=== PATIENT | male | born 1950 | race Caucasian/White ===

== ENCOUNTER 2019-06-17 09:42 | Day surgery (SDC) | payer MEDICARE ==
[2019-06-13 16:03] VITALS: BMI 40.1
[~2019-06-17 09:42] MED LIST: LACTATED RINGERS 1,000 ML IV SCH; LIDOCAINE 1% 20 ML VIAL (10MG/ML) FOR IV START INTRADERMA PRN
[2019-06-17 10:00] VITALS: TEMP 97
[2019-06-17 10:05] LABS: Glucose,Whole Blood 165 mg/dL (75-99)
[2019-06-17] MEDS ORDERED: PROPOFOL 10 MG/ML 20 ML VIAL IV ONE (10:54)
[2019-06-17] MEDS ORDERED: LIDOCAINE 1% INJ 10MG/ML (20 ML MDV) ONE (10:54)
--- NOTE | 2019-06-17 11:07 | P.GSHP ---
History of Present Illness H&P Date: 06/17/19 Chief Complaint: GERD Patient here today for upper endoscopy. Patient has complaints of GERD, reflux, regurgitation, and dysphagia. Symptoms have improved since recently starting antiacids. No workup so far. Past Medical History Past Medical History: Coronary Artery Disease (CAD), Diabetes Mellitus, Hyperlipidemia, Hypertension, Sleep Apnea/CPAP/BIPAP, Thyroid Disorder Additional Past Medical History / Comment(s): pt uses a cpap machine at home Last Myocardial Infarction Date:: 12/29/13 History of Any Multi-Drug Resistant Organisms: None Reported Past Surgical History: Coronary Bypass/CABG, Heart Catheterization With Stent, Joint Replacement, Orthopedic Surgery, Tonsillectomy Additional Past Surgical History / Comment(s): thyroidectomy; cabg - YE TO THE LAD; SAPH TO THE DIAG AND RCA, lt hip replacement, arthroscopic knee Past Anesthesia/Blood Transfusion Reactions: Previous Problems w/ Anesthesia Additional Past Anesthesia/Blood Transfusion Reaction / Comment(s): too longer time to come out anesthesia Date of Last Stent Placement:: 12/29/13; 08/08 Smoking Status: Former smoker - Past Family History Father Family Medical History: Myocardial Infarction (PA) Medications and Allergies Home Medications Medication Instructions Recorded Confirmed Type Pramipexole [Mirapex] 0.25 mg PO HS 12/29/13 06/17/19 History hydrALAZINE HCL [Apresoline] 50 mg PO TID 12/29/13 06/17/19 History metFORMIN HCL [Glucophage] 1,000 mg PO BID 12/29/13 06/17/19 History Gabapentin [Neurontin] 100 mg PO BID 12/30/13 06/17/19 History Atorvastatin [Lipitor] 80 mg PO HS #30 tab 12/31/13 06/17/19 Rx Metoprolol Tartrate [Lopressor] 25 mg PO BID #60 tab 12/31/13 06/17/19 Rx Nitroglycerin Sl Tabs [Nitrostat] 0.4 mg SUBLINGUAL Q5M PRN #20 tab 12/31/13 06/17/19 Rx Aspirin EC [Ecotrin] 325 mg PO DAILY 06/13/19 06/17/19 History Calcium Carbonate/Vitamin D3 1 each PO DAILY 06/13/19 06/17/19 History [Calcium 500-Vit D3 200 Tablet] Enalapril [Vasotec] 20 mg PO BID 06/13/19 06/17/19 History Ergocalciferol [Vitamin D2] 50,000 unit PO TU 06/13/19 06/17/19 History Gabapentin [Neurontin] 300 mg PO HS 06/13/19 06/17/19 History Insulin Glargine [Lantus] 75 unit SQ HS 06/13/19 06/17/19 History Levothyroxine Sodium 100 mcg PO DAILY 06/13/19 06/17/19 History glipiZIDE [Glucotrol] 5 mg PO TID 06/13/19 06/17/19 History Allergies Allergy/AdvReac Type Severity Reaction Status Date / Time No Known Allergies Allergy Verified 06/13/19 15:46 Surgical - Exam Vital Signs Temp Pulse Resp BP Pulse Ox 97 F L 93 18 164/91 92 L 06/17/19 09:58 06/17/19 09:58 06/17/19 09:58 06/17/19 09:58 06/17/19 09:58 Physical exam: General: Well-developed, well-nourished HEENT: Normocephalic, sclerae nonicteric Abdomen: Nontender, nondistended Extremities: No edema Neuro: Alert and oriented Results - Labs Abnormal Lab Results - Last 24 Hours (Table) 06/17/19 Range/Units 10:02 POC Glucose (mg/dL) 165 H (75-99) mg/dL Assessment and Plan (1) GERD (gastroesophageal reflux disease) Narrative/Plan: Will proceed with upper endoscopy. Current Visit: Yes Status: Acute Code(s): K21.9 - GASTRO-ESOPHAGEAL REFLUX DISEASE WITHOUT ESOPHAGITIS SNOMED Code(s): 460935802
--- NOTE | 2019-06-17 11:16 | P.PCN ---
Date of Procedure: 06/17/19 Procedure(s) Performed: Preoperative Dx: GERD, dysphagia Postoperative Dx: Diffuse gastritis Procedure: EGD with Bx Anesthesia: Sedation Endoscopist: Dr. Modi Specimens: Antrum Endoscopic Procedure: The patient was on the endoscopy table in the left decubitus position. The Olympus gastroscope was inserted into the oropharynx and passed under direct visualization to the region of the third portion of the duodenum. On our passage through the esophagus the patient had a lot of saliva present in the esophagus itself. At the GE junction there seemed to be some hesitancy allowing the scope to pass the GE junction. We were able to advance the scope into the duodenum without difficulty however. From that point the scope was slowly withdrawn inspecting all surfaces carefully. There were no neoplastic inflammatory or polypoid lesions throughout the duodenum. The pylorus was widely patent. The stomach was carefully inspected. There was diffuse gastritis present. A biopsy of the antrum took place to rule out H. pylori. Retroflexion revealed a normal hiatus. The esophagus was then carefull y examined. There were no neoplastic inflammatory or polypoid lesions throughout the visualized esophagus. The esophagus appeared slightly dilated. The patient was then taken to the recovery room in stable condition per anesthesia guidelines. Recommendations: Continue antiacid therapy. Await biopsies results. Given the appearance of the esophagus would recommend esophagram and possible manometry to evaluate for dysmotility/achalasia.
[2019-06-17 11:44] VITALS: BP 142/75; PULSE 70; RESP 18
== END 2019-06-17 11:58 | disposition home or self-care (01) ==
LOC: ORWHC2ENDO 09:42
PROVIDERS: ATTEND Surgery
DX: K21.9 Gastro-esophageal reflux disease without esophagitis (principal); K29.70 Gastritis, unspecified, without bleeding; K31.9 Disease of stomach and duodenum, unspecified; K44.9 Diaphragmatic hernia without obstruction or gangrene; I10 Essential (primary) hypertension; I25.10 Atherosclerotic heart disease of native coronary artery without angina pectoris; E11.9 Type 2 diabetes mellitus without complications; E78.5 Hyperlipidemia, unspecified; I25.2 Old myocardial infarction; E89.0 Postprocedural hypothyroidism; G47.33 Obstructive sleep apnea (adult) (pediatric); Z99.89 Dependence on other enabling machines and devices; Z95.5 Presence of coronary angioplasty implant and graft; Z98.890 Other specified postprocedural states; Z90.89 Acquired absence of other organs; Z96.642 Presence of left artificial hip joint; Z87.891 Personal history of nicotine dependence; Z82.49 Family history of ischemic heart disease and other diseases of the circulatory system; Z79.82 Long term (current) use of aspirin; Z79.4 Long term (current) use of insulin; Z79.899 Other long term (current) drug therapy; Z79.890 Hormone replacement therapy; Z95.1 Presence of aortocoronary bypass graft
CPT/HCPCS: 88305; 43239; J2001; J2704

== ENCOUNTER → 2019-07-26 | Outpatient (CLI) | payer MEDICARE ==
--- NOTE | 2019-07-26 12:10 | FL ---
MODIFIED SWALLOW / DEGLUTITION STUDY DATE OF EXAM: 07/26/2019 CLINICAL HISTORY: 69-year-old male with dysphagia, frequent vomiting, followed beginning. In the lowe r chest. TECHNIQUE: Deglutition study is performed utilizing thin liquid barium, honey and nectar thick liqui d barium, barium thick applesauce, and barium coated cracker. COMPARISON: None. Total fluoroscopy time: 3 minutes 10 seconds. Total images: None. Real-time fluoroscopy support was provided to speech pathology. FINDINGS: The oral and pharyngeal phases show satisfactory initiation and propagation with all modalities teste d. Normal mastication is seen with solid modalities tested. There is a single episode of transient penetration with thin liquids. No other penetration or aspiration with any modality tested. No signi ficant pharyngeal residue was appreciated. No abnormal thickening of the cricopharyngeus. A swallow w as followed down and we note marked pooling of ingested material within a dilated esophagus and dista l tapering at the GE junction. IMPRESSION: 1. A single episode of transient penetration. Otherwise, no other penetration or aspiration seen. 2. One swallow was followed down and we note pooling of ingested material up to the upper chest with a dilated esophagus and distal tapering at the GE junction. Consider further workup for distal strict ure or developing achalasia. Please refer to speech therapist notes for further details if necessary.
== END | disposition home or self-care (01) ==
LOC: RADFLMAIN 10:52
PROVIDERS: ATTEND Surgery
DX: T18.100A Unspecified foreign body in esophagus causing compression of trachea, initial encounter (principal); K22.8 Other specified diseases of esophagus
CPT/HCPCS: 74230

== ENCOUNTER → 2019-10-28 | Outpatient (CLI) | payer MEDICARE | END | disposition home or self-care (01) | LOC: LABWHC1 09:03 | PROVIDERS: ATTEND Internal Medicine Gastroenterology | DX: Z11.59 Encounter for screening for other viral diseases (principal) ==

== ENCOUNTER → 2019-10-30 | Day surgery (SDC) | payer MEDICARE ==
[2019-10-29 10:04] VITALS: BMI 39.4
[~2019-10-30] MED LIST changes: +LIDOCAINE 1% (10MG/ML) FOR IV START INTRADERMA PRN; -LIDOCAINE 1% 20 ML VIAL (10MG/ML) FOR IV START INTRADERMA PRN
[2019-10-30 11:28] VITALS: BP 157/77; PULSE 74; RESP 20; TEMP 97.9
[2019-10-30 11:28] LABS: Glucose,Whole Blood 146 mg/dL (75-99)
--- NOTE | 2019-11-01 12:50 | PCN ---
PROCEDURE NOTE DATE OF SERVICE: 10/30/2019. DATE OF DICTATION: 11/01/2019 REQUESTING PHYSICIAN: Dr. Arenas and Dr. Modi. BRIEF HISTORY: Patient is a 69-year-old white male scheduled for esophageal manometry as a part of evaluation of dysphagia. He had an upper endoscopy done by Dr. Modi in May of 2019 that showed evidence of dilated esophagus with retained liquid and tight GE junction, suspicious for esophageal achalasia and hence he is scheduled for esophageal manometry to evaluate further. PROCEDURE PERFORMED: Esophageal manometry. PREOPERATIVE DIAGNOSIS: Dysphagia, rule out esophageal dysmotility. PROCEDURE DESCRIPTION: After informed consent was obtained, the patient was brought into the endoscopy unit. The procedure was performed by Endoscopy nurse. The esophageal manometry catheter was passed from the external ostium, was gently advanced into the stomach and into the esophagus and stomach and gastric baseline was achieved and the study was performed. Using Letcher classification, the study was interpreted. The following are the study results. 1. Lower esophageal sphincter data A mean IRP is 55 mmHg. 2. Lower esophageal body, metastatic contractions 0%, simultaneous contractions 100%. Evidence of isometric contractions noted throughout the study. 3. Bolus transit with liquids was 60% and with viscous was 0%. INTERPRETATION: The above esophageal manometry shows evidence of increased mean integral residual pressures and evidence of a peristalsis in the esophageal body, all of which is consistent with esophageal achalasia. There is evidence of leal esophageal pressurization consistent with type 2 achalasia. MMODL / IJN: [id number] /
== END ==
LOC: ORWHC2ENDO 11:09
PROVIDERS: ATTEND Internal Medicine Gastroenterology
DX: K21.9 Gastro-esophageal reflux disease without esophagitis (principal)
CPT/HCPCS: 91037

== ENCOUNTER → 2021-07-21 | Outpatient (CLI) | payer MEDICARE ==
--- NOTE | 2021-07-21 11:43 | XR ---
EXAMINATION TYPE: XR chest 2V DATE OF EXAM: 07/21/2021 COMPARISON: 09/01/2016 TECHNIQUE: PA and lateral views submitted. HISTORY: Cough FINDINGS: Coarsened interstitium with cardiomegaly and postoperative change. Diffuse hyperinflation. Subsegment al changes both lung bases. Hypertrophic and degenerative change of the spine. Epicardial lead noted. IMPRESSION: 1. COPD correlate for chronic interstitial lung disease with superimposed interstitial pneumonitis or venous congestion.
== END | disposition home or self-care (01) ==
LOC: RADXRMAIN 11:05
PROVIDERS: ATTEND Internal Medicine
DX: J44.9 Chronic obstructive pulmonary disease, unspecified (principal)
CPT/HCPCS: 71046

== ENCOUNTER → 2022-04-04 | Outpatient (CLI) | payer MEDICARE ==
[2022-04-04 18:21] LABS: African American GFR (CKD) 101.6 (60.0-200.0); Albumin 4.2 g/dL (3.8-4.9); Albumin/Globulin Ratio 1.77 (1.60-3.17); Anion Gap 12.1 mmol/L (10.00-18.00); BUN/Creat Ratio 15.7 Ratio (12.00-20.00); Blood Urea Nitrogen 13.8 mg/dL (9.0-27.0); Calcium 9.8 mg/dL (8.7-10.3); Carbon Dioxide 25.1 mmol/L (20.0-27.5); Globulin 2.4 g/dL (1.6-3.3); Non-African American GFR(CKD) 87.7 (60.0-200.0); Potassium 5.7 mmol/L (3.5-5.5); Total Bilirubin 0.7 mg/dL (0.30-1.20); Total Protein 6.6 g/dL (6.2-8.2)
== END | disposition home or self-care (01) ==
LOC: LABWHC1 12:31
PROVIDERS: ATTEND Internal Medicine Interventional Cardiology
DX: I25.5 Ischemic cardiomyopathy (principal)
CPT/HCPCS: 36415; 80053; 83880

== ENCOUNTER → 2022-04-25 | Outpatient (CLI) | payer MEDICARE ==
[2022-04-25 14:34] LABS: ALT 26 U/L (10-49); AST 26 U/L (14-35); African American GFR (CKD) 78.4 (60.0-200.0); Albumin 4.3 g/dL (3.8-4.9); Albumin/Globulin Ratio 1.59 (1.60-3.17); Alkaline Phosphatase 97 U/L (41-126); BUN/Creat Ratio 16.82 Ratio (12.00-20.00); Blood Urea Nitrogen 18.5 mg/dL (9.0-27.0); Calcium 9.7 mg/dL (8.7-10.3); Carbon Dioxide 27.2 mmol/L (20.0-27.5); Chloride 103 mmol/L (96-109); Chol/HDL Ratio 2.84 Ratio; Globulin 2.7 g/dL (1.6-3.3); Glucose 136 mg/dL (70-110); Non-African American GFR(CKD) 67.7 (60.0-200.0); Potassium 5.3 mmol/L (3.5-5.5); Sodium 142 mmol/L (135-145)
== END | disposition home or self-care (01) ==
LOC: LABWHC1 09:11
PROVIDERS: ATTEND Internal Medicine Interventional Cardiology
DX: E78.2 Mixed hyperlipidemia (principal)
CPT/HCPCS: 36415; 80053; 80061

== ENCOUNTER → 2022-09-20 | Outpatient (CLI) | payer MEDICARE ==
--- NOTE | 2022-09-20 18:00 | XR ---
EXAMINATION TYPE: XR chest 2V DATE OF EXAM: 09/20/2022 5:11 PM COMPARISON: Chest radiographs from 07/21/2021 TECHNIQUE: XR chest 2V Frontal and lateral views of the chest. CLINICAL INDICATION:Male, 72 years old with history of R07.9; FINDINGS: Lungs/Pleura: Prominent interstitial lung markings are seen scattered throughout the lungs with igor ening of the diaphragm and increased lucency of the lung apices. Increased airspace opacities project over the heart. No evidence of focal consolidation, pneumothorax or pleural effusion. Pulmonary vascularity: Unremarkable. Heart/mediastinum: Cardiomediastinal silhouette is unremarkable. Musculoskeletal: No acute osseous pathology. IMPRESSION: Increased airspace opacities over the left lung compared to prior. Correlate for pneumonia.
== END | disposition home or self-care (01) ==
LOC: RADXRMAIN 17:00
PROVIDERS: ATTEND Internal Medicine
DX: R05.9 Cough, unspecified (principal); R68.83 Chills (without fever); R91.8 Other nonspecific abnormal finding of lung field; R07.9 Chest pain, unspecified
CPT/HCPCS: 71046

== ENCOUNTER → 2022-09-21 | Outpatient (CLI) | payer MEDICARE ==
[2022-09-22 03:05] LABS: African American GFR (CKD) 104.9 (60.0-200.0); Albumin/Globulin Ratio 1.6 (1.60-3.17); Blood Urea Nitrogen 16.8 mg/dL (9.0-27.0); Calcium 9.6 mg/dL (8.7-10.3); Globulin 2.5 g/dL (1.6-3.3); Non-African American GFR(CKD) 90.5 (60.0-200.0); Potassium 4.7 mmol/L (3.5-5.5); Total Bilirubin 0.4 mg/dL (0.30-1.20); Total Protein 6.5 g/dL (6.2-8.2)
== END | disposition home or self-care (01) ==
LOC: LABWHC1 13:49
PROVIDERS: ATTEND Internal Medicine Interventional Cardiology
DX: I25.5 Ischemic cardiomyopathy (principal)
CPT/HCPCS: 36415; 80053; 83880

== ENCOUNTER → 2022-10-14 | Outpatient (CLI) | payer MEDICARE ==
--- NOTE | 2022-10-14 10:46 | XR ---
EXAMINATION TYPE: XR chest 2V DATE OF EXAM: 10/14/2022 COMPARISON: 09/20/2022 TECHNIQUE: PA and lateral views submitted. HISTORY: Cough FINDINGS: The lungs are clear and there is no pneumothorax or pleural effusion. Subsegmental changes along the left lung base demonstrate interval improvement.. Osseous structures demonstrate hypertrophic and de generative changes of the spine. Heart is enlarged and postoperative changes. Correlate for diffuse n eoplastic skeletal hyperostosis. Epicardial leads noted. IMPRESSION: 1. Interval improvement in left lower lobe area of consolidation with some residual density persistin g felt to resolution recommended to exclude other etiologies
== END | disposition home or self-care (01) ==
LOC: RADXRMAIN 09:06
PROVIDERS: ATTEND Internal Medicine
DX: J98.4 Other disorders of lung (principal); J18.9 Pneumonia, unspecified organism
CPT/HCPCS: 71046

== ENCOUNTER → 2022-10-26 | Outpatient (CLI) | payer MEDICARE ==
--- NOTE | 2022-10-27 14:54 | CT ---
EXAMINATION TYPE: CT chest w con DATE OF EXAM: 10/26/2022 COMPARISON: None HISTORY: pneumonia CT DLP: 611.8 mGycm, Automated exposure control for dose reduction was used. CONTRAST: Performed injected with 100 mL of Isovue 300. TECHNIQUE: Axial images were obtained at 5 mm thick sections. Reconstructed images are reviewed on [employer] computer in the coronal plane. FINDINGS: Right lobe thyroid is enlarged be further evaluated with ultrasound. Appears to be a large hypodensity within the transverse dimension of approximately 1.5 cm. No suspicious lung nodules or focal infiltrates are present. Esophagus is dilated and has internal debris. Some diffuse wall thickening through the mid to distal esophagus. Additional workup of the esophagus is recommended. Esophagitis and neoplasm considered. No enlarged mediastinal or hilar adenopathy is evident. The ascending aorta diameter at the level o f the main pulmonary artery is 3.8 cm. The main pulmonary artery diameter at the bifurcation is 2.[address] sections are obtained through the upper abdomen. Abdomen is essentially unremarkable. IMPRESSIONS: 1. Diffusely thickened esophageal wall from the mid esophagus to the gastroesophageal junction. Neopl asm is not excluded. Additional workup is recommended. 2. Enlarged heterogenous right thyroid. Additional evaluation with ultrasound is recommended.
== END | disposition home or self-care (01) ==
LOC: RADCTMAIN 15:28
PROVIDERS: ATTEND Internal Medicine
DX: J18.9 Pneumonia, unspecified organism (principal); E04.9 Nontoxic goiter, unspecified; R91.8 Other nonspecific abnormal finding of lung field
CPT/HCPCS: 82565; 84520; 71260; 36415; Q9967

== ENCOUNTER → 2022-11-18 | Outpatient (CLI) | payer MEDICARE ==
--- NOTE | 2022-11-18 10:57 | US ---
EXAMINATION TYPE: US thyroid st tissue head/neck DATE OF EXAM: 11/18/2022 COMPARISON: CT dated10/26/2022 CLINICAL INDICATION: Male, 72 years old with history of R22.1; Localized swelling, mass or lump. GLAND SIZE: Right Lobe: 6.3 x 3.3 x 3.2 cm Overall Parenchyma: heterogenous Left Lobe: Surgically absent cm NODULES RIGHT: # of nodules measured on right: 0 Patient believes that he had thyroid removed back in the 80's. Gland is diffusely enlarged and hete rogeneous. Bilateral neck scanned, no evidence of lymphadenopathy. IMPRESSION: Diffuse glandular heterogeneity and enlargement. Correlate with thyroid function testing.
== END | disposition home or self-care (01) ==
LOC: RADUSWWP 10:17
PROVIDERS: ATTEND Internal Medicine
DX: R22.1 Localized swelling, mass and lump, neck (principal)
CPT/HCPCS: 76536

== ENCOUNTER → 2023-01-23 | Outpatient (CLI) | payer MEDICARE ==
[2023-01-23 10:57] LABS: ALT 26 U/L (4-49); AST 24 U/L (17-59); African American GFR (CKD) >90 (>60 ml/min/1.73 sqM); Albumin 3.8 g/dL (3.5-5.0); Albumin/Globulin Ratio 1.3; Alkaline Phosphatase 86 U/L (38-126); Anion Gap 9 mmol/L; Blood Urea Nitrogen 21 mg/dL (9-20); Calcium 9.3 mg/dL (8.4-10.2); Carbon Dioxide 28 mmol/L (22-30); Chloride 104 mmol/L (98-107); Globulin 2.9 g/dL; Glucose 160 mg/dL (74-99); Non-African American GFR(CKD) 89 (>60 ml/min/1.73 sqM); Sodium 141 mmol/L (137-145); Total Bilirubin 0.5 mg/dL (0.2-1.3); Total Protein 6.7 g/dL (6.3-8.2)
[2023-01-23 11:04] LABS: NT-Pro-B-Type Natriuretic Pept 1850 pg/mL
[2023-01-23 15:48] LABS: Chol/HDL Ratio 3.29 Ratio; LDL Cholesterol,Calculated 58.3 mg/dL (0.0-131.0)
== END | disposition home or self-care (01) ==
LOC: LABWHC1 08:47
PROVIDERS: ATTEND Nurse Practitioner Adult Health
DX: I25.5 Ischemic cardiomyopathy (principal); E78.2 Mixed hyperlipidemia
CPT/HCPCS: 36415; 80053; 80061; 83880

== ENCOUNTER → 2023-02-02 | Outpatient (CLI) | payer MEDICARE ==
--- NOTE | 2023-02-02 11:21 | USB ---
Reason for Exam: Clinical finding. Patient History: Maternal grandmother had breast cancer, age 75. Technique: Method: Targeted. Findings: The retroareolar of both breasts was scanned. Subareolar and periareolar left breast ultrasound corresponding to the site of patient's pain. Comparison images to the contralateral side. There is flame-shaped area in the subareolar region typical of gynecomastia. Similar but slightly lesser degree findings on the contralateral side. No suspicious solid or cystic mass. Overall Assessment: Benign, BI-RAD 2 Management: Clinical Management of both breasts. For benign bilateral gynecomastia. Correlate for possible causes. If it continues to be symptomatic and treatment is desired, surgical evaluation can be considered. Results were given to the patient verbally at the time of exam. Electronically signed and approved by: Nadia Stanford M.D. Radiologist
--- NOTE | 2023-02-02 11:22 | MM ---
Reason for Exam: Clinical finding. Patient History: Maternal grandmother had breast cancer, age 75. Tissue Density: The breast tissue is heterogeneously dense. This may lower the sensitivity of mammography. Findings: Analyzed By CAD. Dense tissue is present in the subareolar region on both sides, left greater than right. Density in these locations are flame shaped typical of gynecomastia. No persisting abnormality on spot compression views. Overall Assessment: Incomplete: need additional imaging evaluation, BI-RAD 0 Management: Diagnostic Breast Ultrasound of the left breast. Electronically signed and approved by: Nadia Stanford M.D. Radiologist
== END | disposition home or self-care (01) ==
LOC: RADMAMWWP 10:08
PROVIDERS: ATTEND Internal Medicine
DX: N64.4 Mastodynia (principal); Z80.3 Family history of malignant neoplasm of breast
CPT/HCPCS: 77066; 76642; G0279; 77062

== ENCOUNTER 2023-03-29 08:39 | Day surgery (SDC) | payer MEDICARE ==
[2023-03-27 14:01] VITALS: BMI 33.7
[2023-03-29 09:42] LABS: Glucose,Whole Blood 167 mg/dL (70-110)
[2023-03-29] MEDS ORDERED: LIDOCAINE 1% INJ 10MG/ML (20 ML MDV) ONE (10:05)
[2023-03-29] MEDS ORDERED: PROPOFOL 10 MG/ML 20 ML VIAL IV ONE (10:05)
[2023-03-29] MEDS ORDERED: BENZOCAINE SPRAY 1 CAN TOPICAL ONE (10:10)
[2023-03-29] MEDS ORDERED: ePHEDrine 50 MG/ML 1 ML VIAL IVP ONE (10:35)
--- NOTE | 2023-03-29 10:41 | P.PCN ---
Date of Procedure: 03/29/23 Description of Procedure: Indication: Atrial fibrillation Procedure Description: After explaining the procedure to the patient, it's risk and complications, blood pressure, heart rate and O2 saturation were monitored. The throat was sprayed with Cetacaine. Patient received sedation per anesthesia department. The probe was introduced into the esophagus without difficulty. Images were obtained. Following that, the probe was removed. There was no immediate complication. Findings: Left atrium size is mildly dilated, left atrial appendage is normal. The left ventricle size is normal there is moderate impairment in systolic function with inferoapical and inferolateral hypokinesis. Ejection fraction 35-40%. The aortic valve revealed fibrocalcific changes of the aortic cusps with preserved opening. Mitral annulus calcification was noted. Tricuspid valve is normal. Descending thoracic aorta revealed mild atherosclerotic changes. No pericardial effusion was noted. Contrast bubble study revealed no shunting across the intra-atrial septum. Doppler: Pulse wave and color Doppler were obtained, and revealed moderate mitral with mild to moderate tricuspid regurgitation there was no shunting by color Doppler study Conclusion: 1. Dilated left atrium with normal appearance of the left atrial appendage 2. Moderately impaired left ventricular systolic function with segmental wall motion abnormality 3. Moderate mitral with mild to moderate tricuspid regurgitation 4. Mild atherosclerotic changes of the descending thoracic aorta 5. No shunting across the intra-atrial septum Cardioversion: After explained the procedure to the patient as well as his risks and the complications and obtaining FRANCO and sedated state per anesthesia department synchronize biphasic cardioversion using 150 J was performed with religion of sinus mechanism. Patient had episodes of pauses and bradycardia that resolved spontaneously. There was no immediate complications.
[2023-03-29] MEDS ORDERED: KETOCONAZOLE 2% SHAMPOO 1 APPLIC/ML TOPICAL SCH (10:45)
[2023-03-29] MEDS ORDERED: SODIUM CHLORIDE 0.9% 1,000 ML IV SCH (10:45)
[2023-03-29 11:08] VITALS: TEMP 98
[2023-03-29] MEDS ORDERED: IV FLUID CONTINUATION 1,000 ML IV ONE (12:48)
[2023-03-29 14:55] VITALS: RESP 16
[2023-03-29 15:23] VITALS: BP 110/63; PULSE 65
[2023-03-29] MEDS ORDERED: glipiZIDE 5 MG TAB PO SCH (16:00)
[2023-03-29] MEDS ORDERED: GABAPENTIN 100 MG CAP PO SCH (17:30)
[2023-03-29] MEDS ORDERED: NON FORMULARY DRUG (Metformin Hcl [Glucophage] 1,000 MG Tablet) PO SCH (17:30)
[2023-03-29] MEDS ORDERED: GABAPENTIN 300 MG CAP PO SCH (21:00)
[2023-03-29] MEDS ORDERED: APIXABAN 5 MG TAB PO SCH (21:00)
[2023-03-29] MEDS ORDERED: PRAMIPEXOLE 0.25 MG TAB PO SCH (21:00)
[2023-03-29] MEDS ORDERED: ATORVASTATIN 80 MG TAB PO SCH (21:00)
[2023-03-30] MEDS ORDERED: FUROSEMIDE 20 MG TAB PO SCH (09:00)
[2023-03-30] MEDS ORDERED: SACUBITRIL/VALSARTAN 49 MG-51 MG TABLET PO SCH (09:00)
[2023-03-30] MEDS ORDERED: LEVOTHYROXINE 100 MCG TAB PO SCH (09:00)
[2023-03-30] MEDS ORDERED: NON FORMULARY DRUG (Empagliflozin [Jardiance] 10 MG Tablet) PO SCH (09:00)
[2023-03-30] MEDS ORDERED: EPLERENONE 25 MG PO SCH (09:00)
== END 2023-03-29 15:03 | disposition home or self-care (01) ==
LOC: OR 08:39
PROVIDERS: ATTEND Internal Medicine Interventional Cardiology
DX: I07.1 Rheumatic tricuspid insufficiency (principal); I48.91 Unspecified atrial fibrillation; I70.0 Atherosclerosis of aorta; I25.10 Atherosclerotic heart disease of native coronary artery without angina pectoris; I25.2 Old myocardial infarction; I10 Essential (primary) hypertension; I48.3 Typical atrial flutter; E78.00 Pure hypercholesterolemia, unspecified; I25.5 Ischemic cardiomyopathy; E66.9 Obesity, unspecified; Z95.5 Presence of coronary angioplasty implant and graft; Z79.899 Other long term (current) drug therapy; Z79.84 Long term (current) use of oral hypoglycemic drugs
CPT/HCPCS: 93312; 93320; 93325; 92960; J2001; J2704

== ENCOUNTER → 2023-09-25 | Outpatient (CLI) | payer MEDICARE ==
[2023-09-25 14:28] LABS: HCT 48.2 % (39.6-50.0); HGB 14.9 g/dL (13.0-17.0); MCH 29.1 pg (27.0-32.0); MCHC 30.9 g/dL (32.0-37.0); MCV 94.1 FL (80.0-97.0); Mean Platelet Volume 10.3 FL (9.5-12.2); NRBC Per 100 WBC 0 X 10*3/uL (0.00-0.01); Platelet Count 284 X 10*3/uL (140-440); RBC 5.12 X 10*6/uL (4.40-5.60); RDW 14.9 % (11.5-14.5); WBC 8.19 X 10*3/uL (4.50-10.00)
[2023-09-25 15:00] LABS: Blood Urea Nitrogen 20.9 mg/dL (9.0-27.0); Carbon Dioxide 25.1 mmol/L (21.6-31.8); Chloride 101 mmol/L (96-109); Potassium 5.1 mmol/L (3.5-5.5); Sodium 140 mmol/L (135-145)
== END | disposition home or self-care (01) ==
LOC: LABWHC1 10:50
PROVIDERS: ATTEND Internal Medicine Clinical Cardiac Electrophysiology
DX: Z01.812 Encounter for preprocedural laboratory examination (principal); I48.3 Typical atrial flutter; I10 Essential (primary) hypertension
CPT/HCPCS: 36415; 80051; 82565; 84520; 85027

== ENCOUNTER 2023-10-02 09:31 | Inpatient (IN) | payer MEDICARE ==
[2023-10-02] MEDS: SODIUM CHLORIDE 0.9% 1,000 ML IV SCH (09:57)
[2023-10-02 09:59] LABS: Glucose,Whole Blood 165 mg/dL (70-110)
[2023-10-02 10:36] LABS: ALT 35 U/L (4-49); AST 27 U/L (17-59); African American GFR (CKD) >90 (>60 ml/min/1.73 sqM); Albumin 4.3 g/dL (3.5-5.0); Alkaline Phosphatase 89 U/L (38-126); Anion Gap 10 mmol/L; Blood Urea Nitrogen 19 mg/dL (9-20); Calcium 9.6 mg/dL (8.4-10.2); Carbon Dioxide 26 mmol/L (22-30); Chloride 102 mmol/L (98-107); Glucose 180 mg/dL (74-99); Non-African American GFR(CKD) 87 (>60 ml/min/1.73 sqM); Potassium 4.4 mmol/L (3.5-5.1); Sodium 138 mmol/L (137-145); Total Bilirubin 0.9 mg/dL (0.2-1.3); Total Protein 7.6 g/dL (6.3-8.2)
[2023-10-02] MEDS ORDERED: PHENYLEPHRINE 10 MG/ML VIAL ONE (12:10)
[2023-10-02] MEDS ORDERED: fentaNYL (PF) 50 MCG/ML 2 ML AMP ONE (12:10)
[2023-10-02] MEDS ORDERED: PROPOFOL 10 MG/ML 20 ML VIAL IV ONE (12:10)
[2023-10-02] MEDS ORDERED: HEPARIN SODIUM,PORCINE 10,000 UNIT/ML 1 ML VIAL ONE (12:10)
[2023-10-02] MEDS ORDERED: SUCCINYLCHOLINE CHLORIDE 200 MG/10 ML VIAL IV ONE (12:10)
[2023-10-02] MEDS ORDERED: MIDAZOLAM 2 MG/2 ML VIAL ONE (12:10)
[2023-10-02] MEDS ORDERED: ROCURONIUM 10 MG/ML (5 ML VIAL) IV ONE (12:10)
--- NOTE | 2023-10-02 12:32 | P.HPCAR ---
History of Present Illness This is Dr. Diaz dictating an H/P on this patient The patient was interviewed and examined IMPRESSION / ASSESSMENT: Persistent atrial flutter, symptomatic Associated cardiomyopathy with moderate mitral regurgitation Failed medical treatment and electrical cardioversion Coronary artery disease status post coronary artery bypass grafting in 2005 Coronary stenting in the past Normal TSH On anticoagulation with Eliquis Compliant with nystatin powder application on the groins PLAN: Diagnostic EP study and radiofrequency ablation for typical atrial flutter Reassessment of LV function thereafter Continue anticoagulation HPI Patient remains in atrial flutter. Continues to complain of shortness of breath on exertion tiredness and fatigue Denies any fever chills syncope or chest pain recently in the last 1 to 2 weeks Has been compliant with Eliquis as well as nystatin powder applications on his groins ROS: No fever chills or rigors, no cough, phlegm or expectoration, no nausea, vomiting or diarrhea, no hematuria, dysuria, no musculoskeletal complaints, no strokes or seizures, no skin lesions. EXAMINATION: Pulse rate 80 blood pressure normal 130/76 mmHg Breath sounds equal bilaterally no rhonchi no crackles Heart sounds are irregular No JVD Able to lie flat and comfortably so REVIEW OF LABS, ECG & MEDICAL DATA Sodium 138, potassium 4.4 BUN 19 and creatinine 0.86 TSH normal 1.5 Physical Exam Vitals: Vital Signs Temp Pulse Resp BP BP Pulse Ox 10/02/23 09:52 98.2 F 79 18 130/76 124/67 94 L Intake and Output 10/01/23 10/02/23 10/02/23 22:59 06:59 14:59 Intake Total 100 Balance 100 Intake: IV 100 Other: Weight 112.7 kg Past Medical History Past Medical History: Atrial Flutter, Coronary Artery Disease (CAD), Chest Pain / Angina, Diabetes Mellitus, Hyperlipidemia, Hypertension, Sleep Apnea/CPAP/BIPA P, Thyroid Disorder Additional Past Medical History / Comment(s): c-pap machine, RLS, dry skin, hx of unhealing wound with amputation of left great toe 03/03/23 -states sutures inplace and wearing special shoe-no wt bearing-using rolling walker., hx of esophageal achalasia with dilation and also 2 surgeries to attempt to repair esophagus., See Cardiology H & P. pt has wound to lft foot goes to wound center and does daily dressing changes at home in between., at this time is not using a special shoe Last Myocardial Infarction Date:: 12/29/13 History of Any Multi-Drug Resistant Organisms: None Reported Past Surgical History: Back Surgery, Coronary Bypass/CABG, Heart Catheterization With Stent, Joint Replacement, Orthopedic Surgery, Tonsillectomy Additional Past Surgical History / Comment(s): thyroidectomy; CABG 2005., total right and left hip., arthroscopic knee surgery, egd with dilation, lower back surgery with rods and hardware., cardiac cath with 1 stent in 2012 and 1 stent 2013., pt states achalasia with egd and dilation and davinci laparotomy x2 in attempt to repair esophagus., left great toe amputation (03/03/23) Past Anesthesia/Blood Transfusion Reactions: Previous Problems w/ Anesthesia, Motion Sickness, Postoperative Nausea & Vomiting (PONV) Additional Past Anesthesia/Blood Transfusion Reaction / Comment(s): took a long time to come out of anesthesia. Date of Last Stent Placement:: 2013 Smoking Status: Former smoker - Past Family History Father Family Medical History: Myocardial Infarction (ID) Physical Examination Vital Signs Temp Pulse Resp BP BP Pulse Ox 10/02/23 09:52 98.2 F 79 18 130/76 124/67 94 L Intake and Output 10/01/23 10/02/23 10/02/23 22:59 06:59 14:59 Intake Total 100 Balance 100 Intake: IV 100 Other: Weight 112.7 kg Results 10/02/23 09:50 Cardiac Enzymes 10/02/23 Range/Units 09:50 AST 27 (17-59) U/L Comprehensive Metabolic Panel 10/02/23 Range/Units 09:50 Sodium 138 (137-145) mmol/L Potassium 4.4 (3.5-5.1) mmol/L Chloride 102 (98-107) mmol/L Carbon Dioxide 26 (22-30) mmol/L BUN 19 (9-20) mg/dL Creatinine 0.86 (0.66-1.25) mg/dL Glucose 180 H (74-99) mg/dL Calcium 9.6 (8.4-10.2) mg/dL AST 27 (17-59) U/L ALT 35 (4-49) U/L Alkaline Phosphatase 89 (38-126) U/L Total Protein 7.6 (6.3-8.2) g/dL Albumin 4.3 (3.5-5.0) g/dL Current Medications Generic Name Dose Route Start Last Admin Trade Name Freq PRN Reason Stop Dose Admin Sodium Chloride 1,000 mls @ 20 mls/hr 10/02/23 06:20 10/02/23 09:57 Saline 0.9% IV 11/01/23 06:21 100 mls .Q24H ERUM Administration Intake and Output 10/01/23 10/02/23 10/02/23 22:59 06:59 14:59 Intake Total 100 Balance 100 Intake: IV 100 Other: Weight 112.7 kg Patient Weight 10/03/23 06:59 Weight 112.7 kg 10/02/23 09:50
[2023-10-02] MEDS: HEPARIN SODIUM (1,000 UNIT/ML) 1,000 UNIT in SODIUM CHLORIDE 0.9% 1,000 ML IRRIGATION ONE (12:34)
[2023-10-02] MEDS: LIDOCAINE 1% INJ 10MG/ML (20 ML MDV) SQ ONE (12:51)
--- NOTE | 2023-10-02 15:22 | P.EPPROC ---
- EP Procedure Note Electrophysiology Procedure Note: Diagnosis Typical atrial flutter Cardiomyopathy with congestive heart failure Final diagnosis Successful ablation for typical atrial flutter Prolonged AV node Wenckebach block 510 ms at baseline Prolonged sinus node recovery times Very long cavotricuspid isthmus of 64 mm Procedure details Patient was brought to the EP lab in a fasting state. Written informed consent was obtained prior to the procedure. The right Groins were prepped and draped as a protocol and venous sheaths were placed A long sheath was placed An intracardiac echo catheter was placed. Smoke was noted in the right atrium. IV heparin 5000 units was given, bolus Diagnostic, mapping and ablation catheters were placed A Penta ray catheter was later used to map the isthmus following ablation The patient was in typical atrial flutter with a cycle length of 266 ms 3D anatomic mapping was first performed. This was a very long isthmus of 64 mm. No pericardial effusion at baseline Electroanatomic mapping was performed RF ablation delivered This is resulted in termination of typical atrial flutter Following that a complete line of block was made This took an extra long. Time on account of the length of the isthmus Following that a Penta ray catheter was used to map the voltage along the line The area of fibrillation showed a very low voltage scar of less than 0.03 mV and complete Isthmus conduction time greater than 185 ms With differential pacing bidirectional block was proven Following that [place] interval 144 ms QRS 99 ms QT interval 376 ms AV node Wenckebach block prolonged at 510 ms Sinus node recovery times prolonged at 1683 ms High-dose Isopril infused No atrial fibrillation induced All catheters removed and hemostasis achieved with a combination of Vascade and Perclose Patient tolerated procedure well without any acute complications. No pericardial effusion at the end of the procedure
[2023-10-02 15:26] LABS: Glucose,Whole Blood 163 mg/dL (70-110)
[2023-10-02] MEDS: GABAPENTIN 300 MG CAP PO SCH (16:40)
[2023-10-02] MEDS: carvediloL 3.125 MG TAB PO SCH (16:41)
[2023-10-02] MEDS: glipiZIDE 5 MG TAB PO SCH (16:41)
[2023-10-02] MEDS: metFORMIN 500 MG TAB PO SCH (16:41)
[2023-10-02 17:01] LABS: Glucose,Whole Blood 206 mg/dL (70-110)
[2023-10-02] MEDS: ACETAMINOPHEN IV (For NPO) 1,000 MG in EMPTY BAG 1 BAG IVPB ONE (17:10)
[2023-10-02 20:26] LABS: Glucose,Whole Blood 179 mg/dL (70-110)
[2023-10-02] MEDS: DEXTROSE/WATER 1 250ML.BAG with DOPamine DRIP 800 MG IV SCH (20:45)
[2023-10-02] MEDS: ONDANSETRON 4 MG/2 ML VIAL IVP PRN (21:15)
[2023-10-02] MEDS: ACETAMINOPHEN TAB 325 MG TAB PO PRN (21:29)
[2023-10-02] MEDS: hydrALAZINE HCL 50 MG TAB PO SCH (21:30)
[2023-10-02] MEDS: APIXABAN 5 MG TAB PO SCH (21:30)
[2023-10-02] MEDS: GABAPENTIN 100 MG CAP PO SCH (21:30)
[2023-10-02] MEDS: ATORVASTATIN 80 MG TAB PO SCH (21:30)
[2023-10-03 06:22] LABS: HCT 44.9 % (39.0-53.0); HGB 14.2 gm/dL (13.0-17.5); MCH 30.1 pg (25.0-35.0); MCHC 31.6 g/dL (31.0-37.0); MCV 95.2 fL (80.0-100.0); Mean Platelet Volume 8.2; Platelet Count 268 k/uL (150-450); RBC 4.71 m/uL (4.30-5.90); WBC 10.3 k/uL (3.8-10.6)
[2023-10-03] MEDS: LEVOTHYROXINE 100 MCG TAB PO SCH (06:35)
[2023-10-03 06:36] LABS: Glucose,Whole Blood 296 mg/dL (70-110)
[2023-10-03 06:38] LABS: ALT 28 U/L (4-49); AST 24 U/L (17-59); African American GFR (CKD) >90 (>60 ml/min/1.73 sqM); Albumin 3.5 g/dL (3.5-5.0); Alkaline Phosphatase 61 U/L (38-126); Anion Gap 5 mmol/L; Blood Urea Nitrogen 19 mg/dL (9-20); Calcium 8.6 mg/dL (8.4-10.2); Carbon Dioxide 25 mmol/L (22-30); Chloride 107 mmol/L (98-107); Glucose 204 mg/dL (74-99); Magnesium 1.9 mg/dL (1.6-2.3); Non-African American GFR(CKD) >90 (>60 ml/min/1.73 sqM); Potassium 4.6 mmol/L (3.5-5.1); Sodium 137 mmol/L (137-145); Total Bilirubin 0.6 mg/dL (0.2-1.3); Total Protein 6.3 g/dL (6.3-8.2)
[2023-10-03] MEDS: FUROSEMIDE 20 MG TAB PO SCH (07:47)
[2023-10-03] MEDS: SACUBITRIL/VALSARTAN 49 MG-51 MG TABLET PO SCH (08:07)
--- NOTE | 2023-10-03 08:09 | XR ---
EXAMINATION TYPE: XR chest 1V portable DATE OF EXAM: 10/03/2023 COMPARISON: 10/14/2022 HISTORY: 10/14/2022 TECHNIQUE: Single frontal view of the chest is obtained. FINDINGS: Heart is enlarged and there is ectasia of the aorta. Post median sternotomy changes with b ilateral consolidation. Arthropathy of the shoulders. No overt failure or pneumothorax. IMPRESSION: 1. Basilar atelectasis versus early pneumonia correlate clinically. 2. COPD with cardiomegaly and thoracic aortic ectasia. Widening mediastinum likely reflects positioni ng and ectatic vasculature rather than adenopathy or mass. Dedicated PA and lateral view of the chest could be obtained on a short-term basis.
--- NOTE | 2023-10-03 08:09 | P.PN ---
Progress Note - Text Patient underwent successful atrial flutter ablation yesterday During the ablation while the patient was in sinus rhythm sinus pauses were noted but the patient was under general anesthesia Metoprolol was discontinued and Coreg was started However last evening on 6 N. telemetry the patient started having frequent pauses, sinus pauses and sinus arrest noted symptomatic He was transferred to [facility] but there were no beds so he went to the ICU instead IV dopamine at 2 mics was initiated Despite that he continued to have frequent pauses intermittently through the night He also has significant sleep apnea with hypoxia and desaturation at night On examination his blood pressure is low normal Heart sounds are regular He looks comfortable no chest pain Impression Atrial flutter status post successful ablation Underlying sick sinus syndrome with sudden sinus pauses and sinus arrest intermittently Documented abnormal sinus node recovery times at EP study Documented abnormal AV node function and EP study Yesterday he was symptomatic and dopamine was begun He desaturated at night while sleeping and has sleep apnea. He was placed on BiPAP mask at night Normal labs today Chest x-ray appears normal Normal white count 10.3 thousand, normal hemoglobin of 14.2 thousand Normal electrolytes Normal BUN and creatinine Normal AST and ALT Plan Continue IV dopamine because he continues to have these episodes of sinus arrest on dopamine Permanent pacing prior to discharge He may get up and sit in the chair today Stop Lasix stop hydralazine and hold Entresto Continue Eliquis Permanent pacemaker with conduction system pacing prior to discharge
[2023-10-03] MEDS: DAPAGLIFLOZIN PROPANEDIOL 5 MG TABLET PO SCH (08:15)
[2023-10-03] MEDS: ASPIRIN 81 MG PO SCH (08:16)
[2023-10-03] MEDS: SPIRONOLACTONE 25 MG TAB PO SCH (08:16)
[2023-10-03] MEDS ORDERED: VANCOMYCIN IV PER PHARMACY 1 EACH MISC MISCELLANE PRN (08:35)
[2023-10-03] MEDS: VANCOMYCIN 1,750 MG in SODIUM CHLORIDE 0.9% 500 ML 500 ML IVPB SCH (10:05)
[2023-10-03] MEDS: SACUBITRIL/VALSARTAN 24 MG-26 MG TABLET PO SCH (10:06)
[2023-10-03 11:48] LABS: Glucose,Whole Blood 213 mg/dL (70-110)
[2023-10-03] MEDS: FUROSEMIDE 40 MG TAB PO SCH (12:15)
--- NOTE | 2023-10-03 14:32 | P.CNPUL ---
History of Present Illness Consult date: 10/03/23 Requesting physician: Ken Diaz Reason for consult: other (osas) Chief complaint: Persistent atrial flutter History of present illness: This is a 73-year-old white male with known history of atrial flutter, associated with cardiomyopathy, mitral regurgitation, failed medical treatment and electrical cardioversion, patient underwent diagnostic EP study and radiofrequency ablation for typical atrial flutter, postoperatively, patient was admitted to the ICU, and I was asked to see him in consultation for obstructive sleep apnea syndrome. Patient was diagnosed with sleep apnea many years ago, has been on BiPAP with IPAP of 10 and EPAP of 6 for many years, patient even brought his own BiPAP machine, and he used it last night. Patient denies any cough no wheezing no shortness of breath no chest pain. Dr. Diaz is planning to give the patient vancomycin for a few days because of cellulitis involving his lower extremities, and he plans to have a pacemaker implantation in the next few days. 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 Vancomycin will be started by cardiology, and the dose will be addressed by pharmacy. Review of Systems REVIEW OF SYSTEMS: CONSTITUTIONAL: Negative. EYES: Negative. ENT: Negative. CARDIAC: Negative. PULMONARY: As above. GI: Negative. GENITOURINARY: Negative. MUSCULOSKELETAL: Negative. SKIN: Negative. NEUROPSYCH: Negative. ENDOCRINE: Negative. HEMATOLOGIC: Negative. 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 pt has wound to lft foot goes to wound center and does daily dressing changes at home in between., at this time is not using a special shoe Last Myocardial Infarction Date:: 12/29/13 History of Any Multi-Drug Resistant Organisms: None Reported Past Surgical History: Back Surgery, Coronary Bypass/CABG, Heart Catheterization With Stent, Joint Replacement, Orthopedic Surgery, Tonsillectomy Additional Past Surgical History / Comment(s): thyroidectomy; CABG 2005., total right and left hip., arthroscopic knee surgery, egd with dilation, lower back surgery with rods and hardware., cardiac cath with 1 stent in 2012 and 1 stent 2013., pt states achalasia with egd and dilation and davinci laparotomy x2 in attempt to repair esophagus., left great toe amputation (03/03/23) Past Anesthesia/Blood Transfusion Reactions: Previous Problems w/ Anesthesia, Motion Sickness, Postoperative Nausea & Vomiting (PONV) Additional Past Anesthesia/Blood Transfusion Reaction / Comment(s): took a long time to come out of anesthesia. Date of Last Stent Placement:: 2013 Past Psychological History: No Psychological Hx Reported Smoking Status: Former smoker Past Alcohol Use History: Occasional Additional Past Alcohol Use History / Comment(s): quit smoking 20 plus years ago., smoked approx 40 years ., hx of 1 pack/3d Past Drug Use History: None Reported - Past Family History Father Family Medical History: Myocardial Infarction ([place]) Medications and Allergies Home Medications Medication Instructions Recorded Confirmed Type hydrALAZINE HCL [Apresoline] 50 mg PO BID 12/29/13 10/02/23 History metFORMIN HCL [Glucophage] 1,000 mg PO BID-W/MEALS 12/29/13 10/02/23 History Gabapentin [Neurontin] 100 mg PO HS 12/30/13 10/02/23 History Atorvastatin [Lipitor] 80 mg PO HS #30 tab 12/31/13 10/02/23 Rx Nitroglycerin Sl Tabs [Nitrostat] 0.4 mg SUBLINGUAL Q5M PRN #20 tab 12/31/13 10/02/23 Rx Gabapentin [Neurontin] 300 mg PO TID 06/13/19 10/02/23 History Levothyroxine Sodium 100 mcg PO DAILY 06/13/19 10/02/23 History glipiZIDE [Glucotrol] 5 mg PO TID 06/13/19 10/02/23 History Ammonium Lactate Cream [Lac-Hydrin 1 applic TOPICAL DIRECTED 03/27/23 10/02/23 History 12% Cream] Apixaban [Eliquis] 5 mg PO BID 03/27/23 10/02/23 History Calcium Carbonate [Calcium] 600 mg PO DAILY 03/27/23 10/02/23 History Cholecalciferol [Vitamin D3 (25 25 mcg PO DAILY 03/27/23 10/02/23 History Mcg = 1000 Iu)] Clobetasol Propionate [Temovate 1 applic TOPICAL DIRECTED 03/27/23 10/02/23 History 0.05% Cream] Empagliflozin [Jardiance] 10 mg PO DAILY 03/27/23 10/02/23 History Eplerenone 25 mg PO DAILY 03/27/23 10/02/23 History Furosemide [Lasix] 20 mg PO DAILY 03/27/23 10/02/23 History Ketoconazole 2% Shampoo [Nizoral] 1 applic TOPICAL DIRECTED 03/27/23 10/02/23 History Mometasone 0.1% Ointment 1 applicate TOPICAL DIRECTED 03/27/23 10/02/23 History Pramipexole [Mirapex] 0.25 mg PO HS 03/27/23 10/02/23 History Sacubitril/Valsartan [Entresto 49 1 each PO DAILY 03/27/23 10/02/23 History mg-51 mg Tablet] Aspirin EC [Ecotrin] 81 mg PO DAILY #0 03/29/23 10/02/23 Rx Ozempic(Unk) 1 dose INJ TU 09/29/23 10/02/23 History carvediloL [Coreg] 3.125 mg PO BID #180 tablet 10/02/23 Rx Allergies Allergy/AdvReac Type Severity Reaction Status Date / Time No Known Allergies Allergy Verified 10/02/23 09:46 Physical Exam Vitals: Vital Signs Temp Pulse Pulse Resp BP BP BP 10/03/23 12:00 76 14 112/74 10/03/23 11:30 73 14 103/70 10/03/23 11:00 66 12 111/71 10/03/23 10:30 78 122/73 10/03/23 10:00 68 12 122/82 10/03/23 09:30 83 15 117/66 10/03/23 09:00 82 15 114/77 10/03/23 08:30 84 12 109/67 10/03/23 08:00 98.1 F 64 13 98/73 10/03/23 07:30 86 11 L 115/70 10/03/23 07:00 60 13 109/70 10/03/23 06:30 74 14 10/03/23 06:00 58 L 15 105/70 10/03/23 05:30 77 14 94/58 10/03/23 05:00 65 13 83/54 10/03/23 04:30 98.1 F 75 12 92/62 10/03/23 04:00 71 80 12 102/62 10/03/23 03:30 80 12 123/75 10/03/23 03:03 10/03/23 03:00 78 12 109/80 10/03/23 02:30 69 18 114/70 10/03/23 02:00 77 14 110/72 10/03/23 01:30 80 13 107/70 10/03/23 01:00 83 15 107/62 10/03/23 00:30 82 14 90/63 10/03/23 00:00 98.1 F 81 80 11 L 99/69 10/02/23 23:30 85 15 106/65 10/02/23 23:02 10/02/23 23:00 85 11 L 98/59 10/02/23 22:30 85 16 113/63 10/02/23 22:10 87 11 L 113/63 10/02/23 22:00 86 15 128/81 10/02/23 21:50 89 15 128/81 10/02/23 21:40 91 16 128/81 10/02/23 21:30 87 11 L 141/99 10/02/23 21:20 97 7 L 141/99 10/02/23 21:10 92 17 141/99 10/02/23 21:00 97 5 L 124/83 10/02/23 20:50 88 16 124/83 10/02/23 20:40 85 10 L 10/02/23 20:30 0 L 123/94 10/02/23 20:28 19 10/02/23 19:20 85 108/71 10/02/23 17:30 95 14 10/02/23 17:00 92 14 10/02/23 16:45 93 14 10/02/23 16:35 98.1 F 89 16 10/02/23 16:00 94 17 120/68 05/24 15:45 95 18 112/67 10/02/23 15:27 93 15 126/76 10/02/23 15:12 95 17 10/02/23 14:57 96.8 F L 97 18 135/87 BP Pulse Ox FiO2 10/03/23 12:00 96 10/03/23 11:30 97 10/03/23 11:00 95 10/03/23 10:30 10/03/23 10:00 94 L 10/03/23 09:30 92 L 10/03/23 09:00 93 L 10/03/23 08:30 94 L 10/03/23 08:00 87 L 10/03/23 07:30 94 L 10/03/23 07:00 94 L 10/03/23 06:30 93 L 10/03/23 06:00 93 L 10/03/23 05:30 95 10/03/23 05:00 90 L 10/03/23 04:30 90 L 10/03/23 04:00 90 L 10/03/23 03:30 90 L 10/03/23 03:03 50 10/03/23 03:00 94 L 10/03/23 02:30 94 L 50 10/03/23 02:00 91 L 50 10/03/23 01:30 91 L 10/03/23 01:00 93 L 10/03/23 00:30 94 L 10/03/23 00:00 93 L 50 10/02/23 23:30 92 L 10/02/23 23:02 50 10/02/23 23:00 93 L 50 10/02/23 22:30 88 L 10/02/23 22:10 88 L 10/02/23 22:00 89 L 10/02/23 21:50 90 L 10/02/23 21:40 88 L 10/02/23 21:30 92 L 10/02/23 21:20 91 L 10/02/23 21:10 90 L 10/02/23 21:00 91 L 10/02/23 20:50 94 L 10/02/23 20:40 96 10/02/23 20:30 96 10/02/23 20:28 95 10/02/23 19:20 10/02/23 17:30 114/76 94 L 10/02/23 17:00 115/76 92 L 10/02/23 16:45 131/82 93 L 10/02/23 16:35 131/74 2 L 10/02/23 16:00 92 L 10/02/23 15:45 93 L 10/02/23 15:27 94 L 10/02/23 15:12 92 L 10/02/23 14:57 94 L Intake and Output 10/02/23 10/03/23 10/03/23 22:59 06:59 14:59 Intake Total 138 280 810 Output Total 0 400 375 Balance 138 -120 435 Intake: IV 100 Sodium Chloride 0.9% 1, 100 000 ml @ 20 mls/hr IV . Q24H [facility] Rx#:[id number] Intake, IV Titration 20 160 Amount Sodium Chloride 0.9% 1, 20 160 000 ml @ 20 mls/hr IV . Q24H [facility] Rx#:[id number] Oral 118 120 710 Output: Urine 0 400 375 Other: Voiding Method Urinal Urinal # Bowel Movements 0 Weight 112.7 kg 117.3 kg General: Reveals 73-year-old white male pleasant in no distress Skin: Skin is warm and dry and no rashes or lesions are noted. Eye: Pupils are equal, round and reactive to light, extra-ocular movements are intact; there is normal conjunctiva bilaterally. Ears, nose, mouth and throat: There are moist mucous membranes and no oral lesions. Neck: The neck is supple, there is no tenderness or JVD. Cardiovascular: Regular rate and rhythm, no S3 gallop, Respiratory: Clear bilaterally no rhonchi no wheezes Gastrointestinal: Soft, non-distended, non-tender abdomen without masses or organomegaly noted. There is no rebound or guarding present. Bowel sounds are unremarkable. Musculoskeletal: Normal ROM, no tenderness, There is no pedal edema. Evidence of minimal redness noted on the dorsal aspect of the left lower extremity and left foot, there is also evidence of previous amputation of the big toe. Neurological: Alert oriented x 3 no gross focal neurologic deficit. Psychiatric: Normal mood, affect and no mental status examination Results - Laboratory Findings CBC and BMP: 10/03/23 05:39 10/03/23 05:39 Abnormal lab findings: Abnormal Labs 10/02/23 10/02/23 10/02/23 09:49 09:50 15:25 Glucose 180 H POC Glucose (mg/dL) 165 H 163 H 10/02/23 10/02/23 10/03/23 16:59 20:25 05:39 Glucose 204 H POC Glucose (mg/dL) 206 H 179 H 10/03/23 10/03/23 06:34 11:47 Glucose POC Glucose (mg/dL) 296 H 213 H - Diagnostic Findings Chest x-ray: image reviewed (Chest x-ray showed minimal basilar atelectasis mostly at the left base, no evidence of pneumonia. No evidence of congestive heart failure) Assessment and Plan Assessment: Impression: Persistent atrial flutter, symptomatic, failed medical treatment and electrical cardioversion Status post EP study and radiofrequency ablation for typical atrial flutter, successful ablation Sinus bradycardia, requiring dopamine, patient may eventually need a pacemaker implantation according to cardiology History of coronary artery disease and previous CABG in 2005 as well as previous stenting Obstructive sleep apnea syndrome, under control, patient is compliant with his BiPAP. History of MRSA infection of left foot Recommendations: Continue present supportive care measures Continue dopamine for bradycardia Continue anticoagulation therapy Continue BiPAP, patient is compliant with his BiPAP machine IPAP of 10 and EPAP of 6 Vancomycin as ordered by cardiology and as dosed by pharmacy Will continue to follow Time with Patient: Less than 30
[2023-10-03] MEDS: MUPIROCIN 2% OINT 22 GM TUBE NASAL SCH (17:15)
[2023-10-03 17:27] LABS: Glucose,Whole Blood 207 mg/dL (70-110)
[2023-10-03 21:31] LABS: Glucose,Whole Blood 142 mg/dL (70-110)
[2023-10-04 06:23] LABS: Basophils % (A) 1 %; Eosinophils # (A) 0.2 k/uL (0-0.7); Eosinophils % (A) 3 %; HCT 43.2 % (39.0-53.0); HGB 13.8 gm/dL (13.0-17.5); Lymphocytes # (A) 0.8 k/uL (1.0-4.8); Lymphocytes % (A) 10 %; MCH 30.2 pg (25.0-35.0); MCHC 31.9 g/dL (31.0-37.0); MCV 94.7 fL (80.0-100.0); Mean Platelet Volume 8.1; Monocytes # (A) 0.7 k/uL (0-1.0); Monocytes % (A) 8 %; Neutrophils # (A) 6.5 k/uL (1.3-7.7); Neutrophils % (A) 77 %; Platelet Count 249 k/uL (150-450); RBC 4.56 m/uL (4.30-5.90); RDW 14.9 % (11.5-15.5); WBC 8.4 k/uL (3.8-10.6)
[2023-10-04 06:42] LABS: African American GFR (CKD) >90 (>60 ml/min/1.73 sqM); Anion Gap 2 mmol/L; Blood Urea Nitrogen 15 mg/dL (9-20); Calcium 8.9 mg/dL (8.4-10.2); Carbon Dioxide 27 mmol/L (22-30); Chloride 108 mmol/L (98-107); Glucose 169 mg/dL (74-99); Non-African American GFR(CKD) >90 (>60 ml/min/1.73 sqM); Potassium 4.5 mmol/L (3.5-5.1); Sodium 137 mmol/L (137-145)
[2023-10-04 06:46] LABS: Glucose,Whole Blood 150 mg/dL (70-110)
[2023-10-04 11:24] VITALS: BMI 37.0
[2023-10-04 11:29] LABS: Glucose,Whole Blood 140 mg/dL (70-110)
--- NOTE | 2023-10-04 12:05 | P.PN ---
Subjective Progress Note Date: 10/04/23 Principal diagnosis: Persistent atrial flutter This is a 73-year-old white male with known history of atrial flutter, associated with cardiomyopathy, mitral regurgitation, failed medical treatment and electrical cardioversion, patient underwent diagnostic EP study and radiofrequency ablation for typical atrial flutter, postoperatively, patient was admitted to the ICU, and I was asked to see him in consultation for obstructive sleep apnea syndrome. Patient was diagnosed with sleep apnea many years ago, has been on BiPAP with IPAP of 10 and EPAP of 6 for many years, patient even brought his own BiPAP machine, and he used it last night. Patient denies any cough no wheezing no shortness of breath no chest pain. Dr. Diaz is planning to give the patient vancomycin for a few days because of cellulitis involving his lower extremities, and he plans to have a pacemaker implantation in the next few days. 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 Vancomycin will be started by cardiology, and the dose will be addressed by pharmacy. Patient was evaluated today on 10/04/2023, patient is doing great, asymptomatic, remains in the ICU as an overflow, he is on room air, off dopamine, sitting in a chair, not in any distress he was already started on vancomycin, the plan is to have a pacemaker implantation next Monday. No issues over the last 24 hours. CBC is relatively normal basic metabolic profile is normal renal profile is normal Objective - Vital Signs Vital signs: Vital Signs Temp 98.2 F 10/04/23 08:00 Pulse 86 10/04/23 08:00 Resp 16 10/04/23 08:00 BP 118/83 10/04/23 08:00 Pulse Ox 97 10/04/23 09:10 FiO2 50 10/03/23 03:03 Intake & Output 10/03/23 10/04/23 10/04/23 18:59 06:59 18:59 Intake Total 1150 980 20 Output Total 1025 1850 Balance 125 -870 20 Weight 117 kg 117 kg Intake: IV 200 240 20 Sodium Chloride 0.9% 1, 200 240 20 000 ml @ 20 mls/hr IV . Q24H [facility] Rx#:[id number] Intake, IV Titration 500 Amount Vancomycin 1,750 mg In 500 Sodium Chloride 0.9% 500 ml 500 ml @ 167 mls/hr IVPB Q12HR [facility] Rx#: [id number] Oral 950 240 Output: Urine 1025 1850 Other: Voiding Method Toilet Toilet # Voids 1 - Exam General: Reveals 73-year-old white male pleasant in no distress Skin: Skin is warm and dry and no rashes or lesions are noted. Eye: Pupils are equal, round and reactive to light, extra-ocular movements are intact; there is normal conjunctiva bilaterally. Ears, nose, mouth and throat: There are moist mucous membranes and no oral lesions. Neck: The neck is supple, there is no tenderness or JVD. Cardiovascular: Regular rate and rhythm, no S3 gallop, Respiratory: Clear bilaterally no rhonchi no wheezes Gastrointestinal: Soft, non-distended, non-tender abdomen without masses or organomegaly noted. There is no rebound or guarding present. Bowel sounds are unremarkable. Musculoskeletal: Normal ROM, no tenderness, There is no pedal edema. Evidence of minimal redness noted on the dorsal aspect of the left lower extremity and left foot, there is also evidence of previous amputation of the big toe. Neurological: Alert oriented x 3 no gross focal neurologic deficit. Psychiatric: Normal mood, affect and no mental status examination - Labs CBC & Chem 7: 10/04/23 06:05 10/04/23 06:05 Labs: Abnormal Lab Results - Last 24 Hours (Table) 10/03/23 10/03/23 10/04/23 Range/Units 17:25 21:29 06:05 Lymphocytes # (1.0-4.8) k/uL Chloride 108 H (98-107) mmol/L Creatinine 0.61 L (0.66-1.25) mg/dL Glucose 169 H (74-99) mg/dL POC Glucose (mg/dL) 207 H 142 H (70-110) mg/dL 10/04/23 10/04/23 10/04/23 Range/Units 06:05 06:44 11:27 Lymphocytes # 0.8 L (1.0-4.8) k/uL Chloride (98-107) mmol/L Creatinine (0.66-1.25) mg/dL Glucose (74-99) mg/dL POC Glucose (mg/dL) 150 H 140 H (70-110) mg/dL Assessment and Plan Assessment: Impression: Persistent atrial flutter, symptomatic, failed medical treatment and electrical cardioversion Status post EP study and radiofrequency ablation for typical atrial flutter, successful ablation Sinus bradycardia, requiring dopamine, presently off dopamine. History of coronary artery disease and previous CABG in 2005 as well as previous stenting Obstructive sleep apnea syndrome, under control, patient is compliant with his BiPAP. History of MRSA infection of left foot Recommendations: Continue present supportive care measures Continue anticoagulation therapy Continue BiPAP, patient is compliant with his BiPAP machine IPAP of 10 and EPAP of 6 Vancomycin as ordered by cardiology and as dosed by pharmacy Will continue to follow Time with Patient: Less than 30
[2023-10-04] MEDS: COLLAGENASE 250 UNIT/GM OINTMENT 30 GM TUBE TOPICAL SCH (14:56)
[2023-10-04 16:49] LABS: Glucose,Whole Blood 165 mg/dL (70-110)
[2023-10-05 07:16] LABS: Glucose,Whole Blood 137 mg/dL (70-110)
[2023-10-05] MEDS: VANCOMYCIN TROUGH DUE 1 EACH MISC MISCELLANE ONE (07:42)
[2023-10-05 08:02] LABS: Basophils # (A) 0.1 k/uL (0-0.2); Basophils % (A) 1 %; Eosinophils # (A) 0.4 k/uL (0-0.7); Eosinophils % (A) 5 %; HCT 46.7 % (39.0-53.0); HGB 14.1 gm/dL (13.0-17.5); Hypochromasia Slight; Lymphocytes # (A) 1.2 k/uL (1.0-4.8); Lymphocytes % (A) 16 %; MCH 28.8 pg (25.0-35.0); MCHC 30.2 g/dL (31.0-37.0); MCV 95.6 fL (80.0-100.0); Mean Platelet Volume 8.4; Monocytes # (A) 0.6 k/uL (0-1.0); Monocytes % (A) 8 %; Neutrophils % (A) 66 %; Platelet Count 245 k/uL (150-450); RBC 4.88 m/uL (4.30-5.90); RDW 14.9 % (11.5-15.5); WBC 7.5 k/uL (3.8-10.6)
[2023-10-05 08:22] LABS: African American GFR (CKD) >90 (>60 ml/min/1.73 sqM); Anion Gap 7 mmol/L; Blood Urea Nitrogen 16 mg/dL (9-20); Calcium 8.9 mg/dL (8.4-10.2); Carbon Dioxide 24 mmol/L (22-30); Chloride 107 mmol/L (98-107); Glucose 131 mg/dL (74-99); Non-African American GFR(CKD) >90 (>60 ml/min/1.73 sqM); Potassium 4.4 mmol/L (3.5-5.1); Sodium 138 mmol/L (137-145)
[2023-10-05 11:57] LABS: Glucose,Whole Blood 105 mg/dL (70-110)
--- NOTE | 2023-10-05 13:22 | P.PN ---
Subjective Progress Note Date: 10/05/23 Principal diagnosis: Persistent atrial flutter This is a 73-year-old white male with known history of atrial flutter, associated with cardiomyopathy, mitral regurgitation, failed medical treatment and electrical cardioversion, patient underwent diagnostic EP study and radiofrequency ablation for typical atrial flutter, postoperatively, patient was admitted to the ICU, and I was asked to see him in consultation for obstructive sleep apnea syndrome. Patient was diagnosed with sleep apnea many years ago, has been on BiPAP with IPAP of 10 and EPAP of 6 for many years, patient even brought his own BiPAP machine, and he used it last night. Patient denies any cough no wheezing no shortness of breath no chest pain. Dr. Diaz is planning to give the patient vancomycin for a few days because of cellulitis involving his lower extremities, and he plans to have a pacemaker implantation in the next few days. 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 Vancomycin will be started by cardiology, and the dose will be addressed by pharmacy. Patient was evaluated today on 10/04/2023, patient is doing great, asymptomatic, remains in the ICU as an overflow, he is on room air, off dopamine, sitting in a chair, not in any distress he was already started on vancomycin, the plan is to have a pacemaker implantation next Monday. No issues over the last 24 hours. CBC is relatively normal basic metabolic profile is normal renal profile is normal Patient was reevaluated today on 10/05/2023, patient is doing well, relatively asymptomatic, resting at the bedside chair, scheduled to have a permanent pacemaker implantation today. Remains on vancomycin, continues to use his BiPAP at night, no major issues overnight WBC count is 7.5 hemoglobin 14.1 basic metabolic profile is normal and renal profile is normal Objective - Vital Signs Vital signs: Vital Signs Temp 98.1 F 10/05/23 08:45 Pulse 80 10/05/23 08:45 Resp 15 10/05/23 08:45 BP 110/74 10/05/23 08:45 Pulse Ox 97 10/05/23 08:45 FiO2 50 10/03/23 03:03 Intake & Output 10/04/23 10/05/23 10/05/23 18:59 06:59 18:59 Intake Total 20 240 Output Total 1600 Balance 20 -1600 240 Weight 117 kg Intake: IV 20 Sodium Chloride 0.9% 1, 20 000 ml @ 20 mls/hr IV . Q24H [facility] Rx#:[id number] Oral 240 Output: Urine 1600 Other: Voiding Method Toilet Toilet Toilet # Voids 1 1 1 # Bowel Movements 1 - Exam General: Reveals 73-year-old white male pleasant in no distress, on room air. Skin: Skin is warm and dry and no rashes or lesions are noted. Eye: Pupils are equal, round and reactive to light, extra-ocular movements are intact; there is normal conjunctiva bilaterally. Ears, nose, mouth and throat: There are moist mucous membranes and no oral lesions. Neck: The neck is supple, there is no tenderness or JVD. Cardiovascular: Regular rate and rhythm, no S3 gallop, Respiratory: Clear bilaterally no rhonchi no wheezes Gastrointestinal: Soft, non-distended, non-tender abdomen without masses or organomegaly noted. There is no rebound or guarding present. Bowel sounds are unremarkable. Musculoskeletal: Normal ROM, no tenderness, There is no pedal edema. Evidence of minimal redness noted on the dorsal aspect of the left lower extremity and left foot, there is also evidence of previous amputation of the big toe. Neurological: Alert oriented x 3 no gross focal neurologic deficit. Psychiatric: Normal mood, affect and no mental status examination - Labs CBC & Chem 7: 10/05/23 07:36 10/05/23 07:36 Labs: Abnormal Lab Results - Last 24 Hours (Table) 10/04/23 10/05/23 10/05/23 Range/Units 16:47 07:14 07:36 MCHC (31.0-37.0) g/dL Creatinine 0.60 L (0.66-1.25) mg/dL Glucose 131 H (74-99) mg/dL POC Glucose (mg/dL) 165 H 137 H (70-110) mg/dL 10/05/23 Range/Units 07:36 MCHC 30.2 L (31.0-37.0) g/dL Creatinine (0.66-1.25) mg/dL Glucose (74-99) mg/dL POC Glucose (mg/dL) (70-110) mg/dL Assessment and Plan Assessment: Impression: Persistent atrial flutter, symptomatic, failed medical treatment and electrical cardioversion Status post EP study and radiofrequency ablation for typical atrial flutter, successful ablation Sinus bradycardia, requiring dopamine, presently off dopamine. History of coronary artery disease and previous CABG in 2005 as well as previous stenting Obstructive sleep apnea syndrome, under control, patient is compliant with his BiPAP. History of MRSA infection of left foot Recommendations: Proceed with permanent pacemaker implantation today. Continue vancomycin as ordered by cardiology and dosed by pharmacy Continue present supportive care measures Continue BiPAP, patient is compliant with his BiPAP machine IPAP of 10 and EPAP of 6 Vancomycin as ordered by cardiology and as dosed by pharmacy Transfer to [facility] once a bed is available. Will continue to follow Time with Patient: Less than 30
[2023-10-05] MEDS ORDERED: fentaNYL (PF) 50 MCG/ML 2 ML AMP ONE (16:39)
[2023-10-05] MEDS ORDERED: ONDANSETRON 4 MG/2 ML VIAL ONE (16:39)
[2023-10-05] MEDS ORDERED: TOBRA-DEXAMET 0.3-0.1% OPHTH OINT 3.5 GM TUBE ONE (16:39)
[2023-10-05] MEDS ORDERED: MIDAZOLAM 2 MG/2 ML VIAL ONE (16:39)
--- NOTE | 2023-10-05 16:51 | P.PN ---
Subjective Patient is resting comfortably in bed. He still has episodic sinus arrest and sinus pauses despite being on IV dopamine and discontinuing beta-blockers for greater than 2 days His TSH is normal Off dopamine his pauses are quite significant and he becomes dizzy and lightheaded sitting in bed On examination his heart sounds [place] normal Breath sounds are clear no rhonchi no crackles He has an ulcer on the medial aspect of the right foot. While the edges of the ulcer are well-healed there is very minimal surrounding reaction He has a history of MRSA colonization He is on IV vancomycin as well as mupirocin He has type 2 diabetes He is status post atrial flutter ablation maintain sinus rhythm Left right atrial mapping revealed significant low voltage areas consistent with his sick sinus syndrome His AV node function is also abnormal Normal white count Afebrile Impression Typical atrial flutter successful atrial flutter ablation Sick sinus syndrome with sinus pauses and sinus arrest despite dopamine AV node disease but without advanced AV block Beta-blockers have been discontinued 2 days prior to the procedure but he still has long sinus pauses Plan dual-chamber pacemaker implantation with conduction system pacing Obviously his risk of infection is definitely higher given his MRSA colonization This was discussed with him in detail Objective - Vital Signs Vital signs: Vital Signs Temp 98.2 F 10/05/23 15:18 Pulse 70 10/05/23 15:18 Resp 16 10/05/23 15:18 BP 125/67 10/05/23 15:18 Pulse Ox 97 10/05/23 14:00 FiO2 50 10/03/23 03:03 Intake & Output 10/04/23 10/05/23 10/05/23 18:59 06:59 18:59 Intake Total 20 240 Output Total 1600 Balance 20 -1600 240 Weight 117 kg Intake: IV 20 Sodium Chloride 0.9% 1, 20 000 ml @ 20 mls/hr IV . Q24H [facility] Rx#:[id number] Oral 240 Output: Urine 1600 Other: Voiding Method Toilet Toilet Toilet # Voids 1 1 1 # Bowel Movements 1 - Labs CBC & Chem 7: 10/05/23 07:36 10/05/23 07:36 Labs: Abnormal Lab Results - Last 24 Hours (Table) 10/05/23 10/05/23 10/05/23 Range/Units 07:14 07:36 07:36 MCHC 30.2 L (31.0-37.0) g/dL Creatinine 0.60 L (0.66-1.25) mg/dL Glucose 131 H (74-99) mg/dL POC Glucose (mg/dL) 137 H (70-110) mg/dL
[2023-10-05] MEDS ORDERED: LIDOCAINE 1% INJ 10MG/ML (20 ML MDV) ONE (17:03)
[2023-10-05] MEDS: LACTATED RINGERS 1,000 ML IV ONE (17:05)
[2023-10-05] MEDS: ceFAZolin 1,000 MG in SODIUM CHLORIDE 0.9% IRRIG BTL 250 ML IRRIGATION ONE (17:14)
[2023-10-05] MEDS: LIDOCAINE 1% INJ 10MG/ML (20 ML MDV) SQ ONE ×2 (17:16→17:35)
[2023-10-05] MEDS ORDERED: ACETAMINOPHEN TAB 325 MG TAB PO PRN (18:57)
[2023-10-05 20:16] LABS: Glucose,Whole Blood 110 mg/dL (70-110)
[2023-10-05] MEDS: ACETAMINOPHEN IV (For NPO) 1,000 MG in EMPTY BAG 1 BAG IVPB ONE (20:37)
[2023-10-06 05:22] VITALS: RESP 16
[2023-10-06 06:10] LABS: Glucose,Whole Blood 153 mg/dL (70-110)
--- NOTE | 2023-10-06 08:00 | XR ---
EXAMINATION TYPE: XR chest 2V DATE OF EXAM: 10/06/2023 COMPARISON: 10/03/2023 TECHNIQUE: PA and lateral views submitted. HISTORY: Shortness of breath FINDINGS: Heart is enlarged and there is ectasia of the aorta. Post median sternotomy changes with bilateral co nsolidation. Arthropathy of the shoulders. No overt failure or pneumothorax. Bilateral subsegmental c onsolidation. Correlate for underlying COPD. Mild prominence of the upper mediastinum with deviation of the trachea to the left. IMPRESSION: 1. Stable bilateral atelectasis or infiltrate. 2. Increased right paratracheal soft tissue with deviation of trachea to the left can be associated w ith enlarged thyroid or adenopathy..
--- NOTE | 2023-10-06 08:10 | P.DS ---
Providers Date of admission: 10/03/23 09:05 Attending physician: Ken Diaz Consults: 10/03/23 08:36 Consult Physician Routine Consulting Provider: Katarina Max Consult Reason/Comments: obstructive sleep apnea, s/p ablation, sympt bradycardia and preop ppm Do you want consulting provider notified?: Already Contacted Primary care physician: [facility] Course: Patient is doing well. No chest discomfort dizziness or lightheadedness His pacemaker site is healed well No hematoma no soakage Breath sounds are reduced bilaterally but there are no rhonchi no crackles Heart sounds S1-S2 are normal and regular Blood pressure is normal 112/68 mmHg pulse rate in the 60s afebrile Impression Typical atrial flutter with the slow ventricular response Status post successful ablation Voltage mapping of the right atrium revealed significant scarring Evidence of sick sinus syndrome, symptomatic, following successful ablation Sudden episodes of sinus pauses and sinus arrest despite discontinuation of beta-blockers and starting IV dopamine for greater than 48 hours Abnormal AV node function with atrial pacing at EP study Right bundle branch block pattern at baseline Status dual-chamber post conduction system pacing/LB successful yesterday. Chest x-ray within normal limits Twelve-lead EKG shows evidence of QRS fractionation. Intraoperatively septal scar was evident electrophysiologically Known CAD status post coronary artery bypass grafting Plan His blood pressures in the low normal range and therefore I am reducing his dose of Entresto temporarily for a month. Hopefully within the next few weeks he can go back to his usual dose of 49/51 mg twice daily Toprol dose is being increased to 50 mg p.o. daily at noon time Hydralazine is being discontinued Lasix is being discontinued Anticoagulation to continue with Ton Alatorre to continue Eplerenone to continue Follow-up in the device clinic in a week Follow-up with Dr. Lopes within 4-6 weeks Patient Condition at Discharge: Stable Plan - Discharge Summary Discharge Rx Participant: No New Discharge Prescriptions: New Sacubitril/Valsartan [Entresto 24 mg-26 mg Tablet] 1 each PO BID #60 tablet Metoprolol Succinate (ER) [Toprol Xl] 50 mg PO DAILY #90 tab Continue metFORMIN HCL [Glucophage] 1,000 mg PO BID-W/MEALS Gabapentin [Neurontin] 100 mg PO HS Atorvastatin [Lipitor] 80 mg PO HS #30 tab Nitroglycerin Sl Tabs [Nitrostat] 0.4 mg SUBLINGUAL Q5M PRN #20 tab PRN Reason: Chest Pain Levothyroxine Sodium 100 mcg PO DAILY glipiZIDE [Glucotrol] 5 mg PO TID Gabapentin [Neurontin] 300 mg PO TID Calcium Carbonate [Calcium] 600 mg PO DAILY Ketoconazole 2% Shampoo [Nizoral] 1 applic TOPICAL DIRECTED Cholecalciferol [Vitamin D3 (25 Mcg = 1000 Iu)] 25 mcg PO DAILY Empagliflozin [Jardiance] 10 mg PO DAILY Apixaban [Eliquis] 5 mg PO BID Ammonium Lactate Cream [Lac-Hydrin 12% Cream] 1 applic TOPICAL DIRECTED Mometasone 0.1% Ointment 1 applicate TOPICAL DIRECTED Ozempic(Unk) 1 dose INJ TU Pramipexole [Mirapex] 0.25 mg PO HS Eplerenone 25 mg PO DAILY Clobetasol Propionate [Temovate 0.05% Cream] 1 applic TOPICAL DIRECTED Aspirin EC [Ecotrin] 81 mg PO DAILY #0 Discontinued hydrALAZINE HCL [Apresoline] 50 mg PO BID Furosemide [Lasix] 20 mg PO DAILY Sacubitril/Valsartan [Entresto 49 mg-51 mg Tablet] 1 each PO DAILY Metoprolol Succinate [Toprol XL] 25 mg PO DAILY #0 Discharge Medication List metFORMIN HCL [Glucophage] 1,000 mg PO BID-W/MEALS 12/29/13 [History] Gabapentin [Neurontin] 100 mg PO HS 12/30/13 [History] Atorvastatin [Lipitor] 80 mg PO HS #30 tab 12/31/13 [Rx] Nitroglycerin Sl Tabs [Nitrostat] 0.4 mg SUBLINGUAL Q5M PRN #20 tab 12/31/13 [Rx] Gabapentin [Neurontin] 300 mg PO TID 06/13/19 [History] Levothyroxine Sodium 100 mcg PO DAILY 06/13/19 [History] glipiZIDE [Glucotrol] 5 mg PO TID 06/13/19 [History] Ammonium Lactate Cream [Lac-Hydrin 12% Cream] 1 applic TOPICAL DIRECTED 03/27/23 [History] Apixaban [Eliquis] 5 mg PO BID 03/27/23 [History] Calcium Carbonate [Calcium] 600 mg PO DAILY 03/27/23 [History] Cholecalciferol [Vitamin D3 (25 Mcg = 1000 Iu)] 25 mcg PO DAILY 03/27/23 [History] Clobetasol Propionate [Temovate 0.05% Cream] 1 applic TOPICAL DIRECTED 03/27/23 [History] Empagliflozin [Jardiance] 10 mg PO DAILY 03/27/23 [History] Eplerenone 25 mg PO DAILY 03/27/23 [History] Ketoconazole 2% Shampoo [Nizoral] 1 applic TOPICAL DIRECTED 03/27/23 [History] Mometasone 0.1% Ointment 1 applicate TOPICAL DIRECTED 03/27/23 [History] Pramipexole [Mirapex] 0.25 mg PO HS 03/27/23 [History] Aspirin EC [Ecotrin] 81 mg PO DAILY #0 03/29/23 [Rx] Ozempic(Unk) 1 dose INJ TU 09/29/23 [History] Metoprolol Succinate (ER) [Toprol Xl] 50 mg PO DAILY #90 tab 10/06/23 [Rx] Sacubitril/Valsartan [Entresto 24 mg-26 mg Tablet] 1 each PO BID #60 tablet 10/06/23 [Rx] Activity/Diet/Wound Care/Special Instructions: Post EP study - Ablation instructions 1. Keep access sites dry for 2 days. 2. No heavy lifting or straining for 2 days. 3. Avoid bending the hips repeatedly for 2 days. 4. You may go up and down stairs slowly Call if the following is noted 1. Bleeding, increasing swelling or pain at the access sites. 2. Increasing chest discomfort, especially upon taking a deep breath. 3. Increasing shortness of breath, at rest or with exertion. 4. Undue cough / phlegm 5. Difficulty or pain while swallowing. 6. Pain or change in color in the extremities. 7. Fever, chills, rigors. 8. Increasing headache or neurologic symptoms. 9. Dizziness, fainting, palpitations Continue Eliquis Stop hydralazine Stop Lasix Temporarily, reduce Entresto to 24 mg / 26 mg twice daily Change metoprolol succinate to 50 mg p.o. daily at noon time Entresto and metoprolol succinate sent to [facility] pharmacy Discharge Disposition: HOME SELF-CARE
[2023-10-06 11:29] VITALS: BP 93/60; PULSE 75; TEMP 97.8
[2023-10-06 11:30] LABS: Glucose,Whole Blood 141 mg/dL (70-110)
--- NOTE | 2023-10-06 14:05 | P.PN ---
Subjective Progress Note Date: 10/06/23 Principal diagnosis: Persistent atrial flutter This is a 73-year-old white male with known history of atrial flutter, associated with cardiomyopathy, mitral regurgitation, failed medical treatment and electrical cardioversion, patient underwent diagnostic EP study and radiofrequency ablation for typical atrial flutter, postoperatively, patient was admitted to the ICU, and I was asked to see him in consultation for obstructive sleep apnea syndrome. Patient was diagnosed with sleep apnea many years ago, has been on BiPAP with IPAP of 10 and EPAP of 6 for many years, patient even brought his own BiPAP machine, and he used it last night. Patient denies any cough no wheezing no shortness of breath no chest pain. Dr. Diaz is planning to give the patient vancomycin for a few days because of cellulitis involving his lower extremities, and he plans to have a pacemaker implantation in the next few days. 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 Vancomycin will be started by cardiology, and the dose will be addressed by pharmacy. Patient was evaluated today on 10/04/2023, patient is doing great, asymptomatic, remains in the ICU as an overflow, he is on room air, off dopamine, sitting in a chair, not in any distress he was already started on vancomycin, the plan is to have a pacemaker implantation next Monday. No issues over the last 24 hours. CBC is relatively normal basic metabolic profile is normal renal profile is normal Patient was reevaluated today on 10/05/2023, patient is doing well, relatively asymptomatic, resting at the bedside chair, scheduled to have a permanent pacemaker implantation today. Remains on vancomycin, continues to use his BiPAP at night, no major issues overnight WBC count is 7.5 hemoglobin 14.1 basic metabolic profile is normal and renal profile is normal Reevaluated today on 10/06/2023, patient is doing great, resting at the bedside chair, not in distress, on room air, patient had uneventful pacemaker implantation yesterday. Patient was already seen by cardiology, and being considered for discharge today Objective - Vital Signs Vital signs: Vital Signs Temp 97.8 F 10/06/23 09:55 Pulse 75 10/06/23 09:55 Resp 16 10/06/23 09:55 BP 93/60 10/06/23 09:55 Pulse Ox 94 L 10/06/23 09:56 FiO2 50 10/03/23 03:03 Intake & Output 10/05/23 10/06/23 10/06/23 18:59 06:59 18:59 Intake Total 890 480 Output Total 400 225 Balance 890 -400 255 Intake: IV 650 Oral 240 480 Output: Urine 400 225 Other: Voiding Method Toilet Urinal Urinal # Voids 1 1 1 # Bowel Movements 1 - Exam General: Reveals 73-year-old white male pleasant in no distress, on room air. Skin: Skin is warm and dry and no rashes or lesions are noted. Eye: Pupils are equal, round and reactive to light, extra-ocular movements are intact; there is normal conjunctiva bilaterally. Ears, nose, mouth and throat: There are moist mucous membranes and no oral lesions. Neck: The neck is supple, there is no tenderness or JVD. Cardiovascular: Regular rate and rhythm, no S3 gallop, Respiratory: Clear bilaterally no rhonchi no wheezes Gastrointestinal: Soft, non-distended, non-tender abdomen without masses or organomegaly noted. There is no rebound or guarding present. Bowel sounds are unremarkable. Musculoskeletal: Normal ROM, no tenderness, There is no pedal edema. Evidence of minimal redness noted on the dorsal aspect of the left lower extremity and left foot, there is also evidence of previous amputation of the big toe. Neurological: Alert oriented x 3 no gross focal neurologic deficit. Psychiatric: Normal mood, affect and no mental status examination - Labs CBC & Chem 7: 10/05/23 07:36 10/05/23 07:36 Labs: Abnormal Lab Results - Last 24 Hours (Table) 10/06/23 10/06/23 Range/Units 06:02 11:27 POC Glucose (mg/dL) 153 H 141 H (70-110) mg/dL Assessment and Plan Assessment: Impression: Persistent atrial flutter, symptomatic, failed medical treatment and electrical cardioversion Status post EP study and radiofrequency ablation for typical atrial flutter, successful ablation Sinus bradycardia, requiring dopamine, presently off dopamine. History of coronary artery disease and previous CABG in 2005 as well as previous stenting Obstructive sleep apnea syndrome, under control, patient is compliant with his BiPAP. History of MRSA infection of left foot Recommendations: Status post permanent pacemaker implantation postoperative day #1 Continue present supportive care measures Continue BiPAP, at bedtime. Cleared for discharge home today Will continue to follow Time with Patient: Less than 30
--- NOTE | 2023-10-09 15:24 | P.EPPROC ---
- EP Procedure Note Electrophysiology Procedure Note: Diagnosis Symptomatic bradycardia, unprovoked, no triggering factors Procedure Dual-chamber pacemaker implantation with conduction system pacing (left bundle pacing) Left upper extremity venogram Details Patient was brought to the EP lab in a fasting state. Written informed consent was obtained prior to the procedure. Conscious sedation provided by [facility] SERVICES SPECIALIST. IV antibiotics administered. Local anesthesia administered. A 4 cm incision made in the pectoral area. Subfascial pocket made. Venous accesses obtained Venous sheaths placed. Leads placed in the right heart. 2 sets of pacing cables were used; one for backup temporary pacing and the other for assessment of current of injury and signal analysis. A 52 cm atrial pacing lead was first positioned in the RV apex for temporary pacing during mapping and conduction system pacing Thresholds were interrogated and backup high output pacing was provided This atrial lead was then removed from the right ventricle and later positioned in the right atrial appendage and the permanent lead A deflected sheath was prepped. A coronary sinus decapolar catheter was placed within this sheath. The catheter along with the sheath was then passed into the right heart, the catheter was prolapsed across the tricuspid valve, into the right ventricle and then further into the right ventricular outflow tract across the pulmonic valve into the pulmonary artery. This sheath was slid over this decapolar catheter into the RVOT. Thereafter the catheter last sheath assembly was withdrawn from the RVOT along the septum to the mid septal area. The sheath was appropriately to to map the right ventricular aspect of the septum. The decapolar catheter was withdrawn, the sheath flushed again and the screw-in pacing lead placed within the sheath. Further detailed unipolar pace-mapping of the septum was performed and once the appropriate based morphology was obtained on lead V1, the lead was screwed into the septum. The lead was screwed in 4-5 returns at a time while monitoring the current of injury, the pacing impedance changes and the paced QRS morphology. The stimulus to peak of V6 QRS was measured at each step. Once a QR or rSR pattern of paced QRS in lead V1 was obtained, a left bundle signal was sought. Impedance was measured and thresholds were measured. An impedance drop of 100-200 ohms but above 550 ohms was targeted along with an unchanged vector of the current of injury signal. The final positioning was based on the QRS morphology in lead V1 and a short stimulus to peak of the V6 QRS of less than 90 ms. The sheath was withdrawn, stability of the pacing lead deep in the septum was confirmed on CALIX and NI vie ws and the sheath was slipped and an adequate heel was provided for the lead. Unipolar and bipolar electrogram morphology obtained Atrial lead positioned in the right atrial appendage. Sensing, thresholds and impedances measured following positioning and securing the lead in the right atrial appendage P waves 1.3 mV, pacing impedance 494 ohms and pacing threshold 0.7 V at point 4 ms Left bundle lead parameters: Pacing threshold 1 V at point 4 ms, pacing impedance 646 ohms and R waves 11.4 mV Device mortgage loan closer: YABUYtronic dual-chamber pacemaker JAKY XT mri Dual-chamber pacemaker device connected to the leads and placed in the subfascial pocket Patient tolerated the procedure well without acute complications Pacemaker programming DDDR 60-130 bpm, paced AV delay of 180 ms Details of left bundle pacing on this patient Once the lead/sheath assembly was positioned on the septum, the site selected had a W-shaped paced pattern in lead V1, good current of injury 3 turns were made, excellent current of injury of increased amplitude W-shaped pattern in lead V1 persisted when pacing. Initial impedance in the mid 925s ohms, biphasic QRS in V6 Further 2 turns made, further improvement in current of injury of greater amplitude W-shaped pattern in lead V1 persisted with pacing. Impedance increased to about 750 ohms, upright QRS in lead V6, shortening of stimulus-peak of V6 = 54 mil liseconds in the unipolar configuration Further tomorrow turns given. Reduction in current of injury, persistence of the W-shaped pattern in lead V1 W-shaped pattern persisted, stimulus-peak of V6 duration = 54, impedance in the 650 Since there was significant and stable shortening of the stimulus-V6 to 54 ms, a drop in the impedance to mid 600s, reduction in the current of injury but still present, the position was excepted as left bundle pacing in the presence of likely scar that resulted in lead V1 with a paced W-shaped pattern Intermittently a QR pattern was noted during pacing and the stimulus-V6 remained stable and similar to the W-shaped QRSs on lead V1
--- NOTE | 2023-10-09 23:07 | CDI ---
Documentation Clarification Form Date: 10/09/2023 10:56:39 PM From: Jessie Kuo Phone: Admit Date: 10/03/2023 09:05:00 AM Patient Name: Cuh Anand Visit Number: [id number] Discharge Date: 10/06/2023 01:47:00 PM ATTENTION: The Clinical Documentation Specialists (CDI) and [facility] Coding Staff appreciate your assistance in clarifying documentation. Please respond to the clarification below the line at the bottom and electronically sign. The CDI & [facility] Coding staff will review the response and follow-up if needed. Please note: Queries are made part of the Legal Health Record. If you have any questions, please contact the author of this message via ITS. Dr. Ken Diaz Conflicting documentation has been found in the medical record. As attending physician, please provide clarification. Cardiomyopathywithcongestive heart failure Procedure Note 5/6 No evidence ofcongestive heart failure Consult Note 5/7 History/Risk Factors: 73yo M, Typicalatrial flutter, SSS sp PPM, abnormalAVnodefunction with atrial pacing atEP study, RBBB, CAD sp CABG, NAZIA Clinical Indicators: VS/Pulse OX: 94 Chest x ray: showed minimal basilaratelectasis mostly at the left base,no evidence ofpneumonia Treatment: Stop Lasix stop hydralazine and hold Entresto In your professional opinion, can you please clarify the type of CHF if known? [ ] CHF ruled out [ xxx ] Chronic Systolic Heart Failure (reduced EF) [ ] Chronic Diastolic Heart Failure (preserved EF) [ ] Chronic Systolic & Diastolic Heart Failure [ ] Other, please specify [ ] Unable to determine (Template Last Revised: July 2020) MTDD
--- NOTE | 2023-10-09 23:14 | CDI ---
Documentation Clarification Form Date: 10/09/2023 11:08:00 PM From: Jessie Kuo Phone: Admit Date: 10/03/2023 09:05:00 AM Patient Name: Chu Anand Visit Number: [id number] Discharge Date: 10/06/2023 01:47:00 PM ATTENTION: The Clinical Documentation Specialists (CDI) and [facility] Coding Staff appreciate your assistance in clarifying documentation. Please respond to the clarification below the line at the bottom and electronically sign. The CDI & [facility] Coding staff will review the response and follow-up if needed. Please note: Queries are made part of the Legal Health Record. If you have any questions, please contact the author of this message via ITS. Dr. Ken Diaz There is documentation of a left foot ulcer. Additional specificity regarding the severity of the wound is requested. Patient history/risk factors: 73yo M, Typical atrial flutter, SSS sp PPM, abnormal AV node function with atrial pacing at EP study, RBBB, CAD sp CABG, NAZIA, DMII w Hx great toe amputation Clinical Indicators: Wound assessment: He has anulceron the lateral aspect of the foot and beneath that is his metatarsal. The edges are healing and there is a little bit of pus that was expressed at the distal end of thewound, may be a dropper to. Mild redness around thisulcer. Normal white count. Knownhistory of MRSA. Afebrile Treatment: [facility] and does daily dressing changes at home in between., at this time is not using a special shoe Please clarify the etiology and severity of the wound: [ ] Limited to breakdown of skin [ ] With fat layer exposed [ ] Other, Please specify [ ] Unable to determine (Template Last Revised: July 2020) Ulcer, Chronic, deep, no active cellulitis, bone exposed at base, clean base and edges MTDD
--- NOTE | 2023-10-09 23:20 | CDI ---
Documentation Clarification Form Date: 10/09/2023 11:14:00 PM From: Jessie Kuo Phone: Admit Date: 10/03/2023 09:05:00 AM Patient Name: Chu Anand Visit Number: [id number] Discharge Date: 10/06/2023 01:47:00 PM ATTENTION: The Clinical Documentation Specialists (CDI) and [facility] Coding Staff appreciate your assistance in clarifying documentation. Please respond to the clarification below the line at the bottom and electronically sign. The CDI & [facility] Coding staff will review the response and follow-up if needed. Please note: Queries are made part of the Legal Health Record. If you have any questions, please contact the author of this message via ITS. Dr. Ken Diaz Cellulitisinvolving BLE is documented per Consult 10/02. Additional clarification regarding the type of cellulitis is requested. History/risk factors: 73yo M, persistent A flutter, CAD, DMII, SSS, CM Clinical Indicators: cellulitisinvolving his lower extremities Treatment: give the patient vancomycin for a few days Please clarify the etiology of the cellulitis, if known: [ ] Cellulitis is a diabetic skin complication [ ] Cellulitis is not a diabetic skin complication [ ] Other, please specify: [ ] Unable to determine (Template Last Revised: May 2022) NO cellulitis MTDD
== END 2023-10-06 13:47 | disposition home or self-care (01) | DRG 243 ==
LOC: CATHEP 09:31 → 6NMEDSUR 14:38 → 2SICU 20:50 → CATHEP 10-03 08:58 → 2SICU 10-03 09:05 → 3SCARD 10-05 19:21
PROVIDERS: ADMIT Internal Medicine Clinical Cardiac Electrophysiology; ATTEND Internal Medicine Clinical Cardiac Electrophysiology
PROC: B24BZZZ Ultrasonography of Heart with Aorta (ICD-10-PCS; 2023-10-02)
PROC: 02583ZZ Destruction of Conduction Mechanism, Percutaneous Approach (ICD-10-PCS; 2023-10-02 11:30)
PROC: 3E033XZ Introduction of Vasopressor into Peripheral Vein, Percutaneous Approach (ICD-10-PCS; 2023-10-03)
PROC: 02H63JZ Insertion of Pacemaker Lead into Right Atrium, Percutaneous Approach (ICD-10-PCS; 2023-10-05)
PROC: 02HK3JZ Insertion of Pacemaker Lead into Right Ventricle, Percutaneous Approach (ICD-10-PCS; 2023-10-05)
PROC: 0JH606Z Insertion of Pacemaker, Dual Chamber into Chest Subcutaneous Tissue and Fascia, Open Approach (ICD-10-PCS; principal; 2023-10-05 18:15)
DX: I48.3 Typical atrial flutter (principal); I50.22 Chronic systolic (congestive) heart failure; L97.426 Non-pressure chronic ulcer of left heel and midfoot with bone involvement without evidence of necrosis; I49.5 Sick sinus syndrome; I42.9 Cardiomyopathy, unspecified; E11.621 Type 2 diabetes mellitus with foot ulcer; I11.0 Hypertensive heart disease with heart failure; Z89.412 Acquired absence of left great toe; K22.0 Achalasia of cardia; I44.1 Atrioventricular block, second degree; I34.0 Nonrheumatic mitral (valve) insufficiency; I10 Essential (primary) hypertension; G25.81 Restless legs syndrome; E89.0 Postprocedural hypothyroidism; I45.10 Unspecified right bundle-branch block; I25.10 Atherosclerotic heart disease of native coronary artery without angina pectoris; G47.33 Obstructive sleep apnea (adult) (pediatric); E78.5 Hyperlipidemia, unspecified; I45.5 Other specified heart block; Z96.643 Presence of artificial hip joint, bilateral; Z79.01 Long term (current) use of anticoagulants; Z87.891 Personal history of nicotine dependence; Z79.891 Long term (current) use of opiate analgesic; Z79.82 Long term (current) use of aspirin; Z95.1 Presence of aortocoronary bypass graft; Z95.5 Presence of coronary angioplasty implant and graft; Z82.49 Family history of ischemic heart disease and other diseases of the circulatory system; I25.2 Old myocardial infarction; Z86.14 Personal history of Methicillin resistant Staphylococcus aureus infection; Z79.84 Long term (current) use of oral hypoglycemic drugs; Z79.890 Hormone replacement therapy; Z79.899 Other long term (current) drug therapy
CPT/HCPCS: 33208; 71045; 71046; 80048; 80053; 80202; 83735; 84443; 85025; 85027; 86850; 86900; 86901; 93623; 93653; 93662; 94660; 94760

== ENCOUNTER 2024-04-16 08:01 | Day surgery (SDC) | payer MEDICARE ==
[2024-04-12 14:16] VITALS: BMI 33.7
[2024-04-16 08:25] VITALS: TEMP 96.2
[2024-04-16] MEDS: IV FLUID CONTINUATION 1,000 ML IV ONE (08:25)
[2024-04-16] MEDS: LACTATED RINGERS 1,000 ML IV SCH (08:33)
[2024-04-16 08:36] LABS: Glucose,Whole Blood 108 mg/dL (70-110)
[2024-04-16] MEDS ORDERED: PROPOFOL 10 MG/ML 20 ML VIAL IV ONE (08:38)
--- NOTE | 2024-04-16 08:40 | P.GSHP ---
History of Present Illness H&P Date: 04/16/24 Chief Complaint: Abnormal stool test 73-year-old male here for colonoscopy. Last colonoscopy 10 years ago. Recent Cologuard abnormal per patient. No bowel complaints. No family history of colon cancer. Past Medical History Past Medical History: Atrial Flutter, Coronary Artery Disease (CAD), Chest Pain / Angina, Heart Failure, Diabetes Mellitus, Hyperlipidemia, Hypertension, Skin Disorder, Sleep Apnea/CPAP/BIPAP, Thyroid Disorder Additional Past Medical History / Comment(s): c-pap machine, RLS, dry skin, hx of unhealing wound with amputation of left great toe 03/03/23 -states sutures inplace and wearing special shoe-no wt bearing-using rolling walker-healed, hx of esophageal achalasia with dilation and also 2 surgeries to attempt to repair esophagus., See Cardiology [facility]. pt has wound to lft foot goes to wound center -scabbed and dismissed from wound center., Last Myocardial Infarction Date:: 12/29/13 History of Any Multi-Drug Resistant Organisms: MRSA Date of last positivie culture/infection: MDRO Source:: left great toe Past Surgical History: Back Surgery, Coronary Bypass/CABG, Heart Catheterization With Stent, Joint Replacement, Orthopedic Surgery, Pacemaker, Tonsillectomy Additional Past Surgical History / Comment(s): thyroidectomy; CABG 2005- vessel., total right and left hip., arthroscopic knee surgery, egd with dilation, lower back surgery with rods and hardware., cardiac cath with 1 stent in 2012 and 1 stent 2013., pt states achalasia with egd and dilation and davinci laparotomy x2 in attempt to repair esophagus., left great toe amputation (03/03/23) Past Anesthesia/Blood Transfusion Reactions: Previous Problems w/ Anesthesia, Motion Sickness, Postoperative Nausea & Vomiting (PONV) Additional Past Anesthesia/Blood Transfusion Reaction / Comment(s): took a long time to come out of anesthesia. Date of Last Stent Placement:: 2013 Type of Cardiac Device: Permanent Pacemaker Device Placement Date:: left chest Smoking Status: Former smoker - Past Family History Father Family Medical History: Myocardial Infarction (NE) Medications and Allergies Home Medications Medication Instructions Recorded Confirmed Type metFORMIN HCL [Glucophage] 1,000 mg PO BID-W/MEALS 12/29/13 04/16/24 History Gabapentin [Neurontin] 100 mg PO DAILY@0900,1300 12/30/13 04/16/24 History Atorvastatin [Lipitor] 80 mg PO HS #30 tab 12/31/13 04/16/24 Rx Nitroglycerin Sl Tabs [Nitrostat] 0.4 mg SUBLINGUAL Q5M PRN #20 tab 12/31/13 04/16/24 Rx Gabapentin [Neurontin] 300 mg PO DAILY@0400,1500,2100 06/13/19 04/16/24 History glipiZIDE [Glucotrol] 5 mg PO TID 06/13/19 04/16/24 History Ammonium Lactate Cream [Lac-Hydrin 1 applic TOPICAL DIRECTED PRN 03/27/23 04/16/24 History 12% Cream] Apixaban [Eliquis] 5 mg PO BID 03/27/23 04/16/24 History Calcium Carbonate [Calcium] 1,200 mg PO DAILY 03/27/23 04/16/24 History Cholecalciferol [Vitamin D3 (25 50 mcg PO DAILY 03/27/23 04/16/24 History Mcg = 1000 Iu)] Clobetasol Propionate [Temovate 1 applic TOPICAL DIRECTED PRN 03/27/23 04/16/24 History 0.05% Cream] Empagliflozin [Jardiance] 10 mg PO DAILY 03/27/23 04/16/24 History Eplerenone 25 mg PO QAM 03/27/23 04/16/24 History Ketoconazole 2% Shampoo [Nizoral] 1 applic TOPICAL DIRECTED PRN 03/27/23 04/16/24 History Mometasone 0.1% Ointment 1 applicate TOPICAL DIRECTED PRN 03/27/23 04/16/24 History Pramipexole [Mirapex] 0.25 mg PO HS 03/27/23 04/16/24 History Aspirin EC [Ecotrin] 81 mg PO DAILY #0 03/29/23 04/16/24 Rx Levothyroxine Sodium [Synthroid] 100 mcg PO QAM 04/12/24 04/16/24 History Metoprolol Succinate (ER) [Toprol 50 mg PO QAM 04/12/24 04/16/24 History Xl] Sacubitril/Valsartan [Entresto 49 1 each PO QAM 04/12/24 04/16/24 History mg-51 mg Tablet] Semaglutide [Ozempic] 0.5 mg SQ TU 04/12/24 04/16/24 History Allergies Allergy/AdvReac Type Severity Reaction Status Date / Time No Known Allergies Allergy Verified 04/16/24 08:20 Surgical - Exam Vital Signs Temp Pulse Resp BP Pulse Ox 96.2 F L 92 16 148/83 92 L 04/16/24 08:24 04/16/24 08:24 04/16/24 08:24 04/16/24 08:24 04/16/24 08:24 Physical exam: General: Well-developed, well-nourished HEENT: Normocephalic, sclerae nonicteric Abdomen: Nontender, nondistended Extremities: No edema Neuro: Alert and oriented Assessment and Plan (1) Abnormal stool test Narrative/Plan: Will proceed with colonoscopy at this time. Current Visit: Yes Status: Acute Code(s): R19.5 - OTHER FECAL ABNORMALITIES SNOMED Code(s): 979054036
--- NOTE | 2024-04-16 08:57 | P.PCN ---
Date of Procedure: 04/16/24 Procedure(s) Performed: PREOPERATIVE DIAGNOSIS: Abnormal Cologuard POSTOPERATIVE DIAGNOSIS: Ileocecal valve polyp, cecal polyp, diverticulosis PROCEDURE: Colonoscopy with snare polypectomy ANESTHESIA: MAC SURGEON: Josh Modi M.D. SPECIMENS: Cecal polyps ENDOSCOPIC PROCEDURE: The patient was placed on the endoscopy table in the left decubitus position. The Olympus colonoscope was inserted into the anus and passed under direct visualization to the base of the cecum. The appendiceal orifice was visualized. From that point the scope was slowly withdrawn inspecting all surfaces carefully. There was a small polyp at the base of the cecum that was removed using the snare with cautery technique. This measured about 6 mm in size. On the valve itself there was a somewhat pedunculated and friable looking polypoid lesion measuring about 1 cm. This was removed using the snare with cautery technique. No residual polypoid tissue was noted there following excision. The ascending transverse descending sigmoid and rectum appeared normal. Patient had mild left-sided diverticulosis. Digital rectal examination was normal. The patient was taken to the recovery room in stable condition per anesthesia guidelines. RECOMMENDATIONS: Await biopsy results. Will likely recommend short-term repeat colonoscopy given the atypical appearance of the ileocecal valve itself with the polyp on the valve.
[2024-04-16 09:14] LABS: Glucose,Whole Blood 102 mg/dL (70-110)
[2024-04-16 09:35] VITALS: BP 115/70; PULSE 61; RESP 17
== END 2024-04-16 09:48 | disposition home or self-care (01) ==
LOC: ORWHC2ENDO 08:01
PROVIDERS: ATTEND Surgery
DX: K63.5 Polyp of colon (principal); K57.30 Diverticulosis of large intestine without perforation or abscess without bleeding; I11.0 Hypertensive heart disease with heart failure; E78.5 Hyperlipidemia, unspecified; I25.119 Atherosclerotic heart disease of native coronary artery with unspecified angina pectoris; I50.22 Chronic systolic (congestive) heart failure; I25.2 Old myocardial infarction; E11.9 Type 2 diabetes mellitus without complications; G47.33 Obstructive sleep apnea (adult) (pediatric); G25.81 Restless legs syndrome; Z95.0 Presence of cardiac pacemaker; Z90.89 Acquired absence of other organs; Z95.1 Presence of aortocoronary bypass graft; Z87.891 Personal history of nicotine dependence; Z82.49 Family history of ischemic heart disease and other diseases of the circulatory system; Z79.84 Long term (current) use of oral hypoglycemic drugs; Z79.01 Long term (current) use of anticoagulants; Z79.890 Hormone replacement therapy
CPT/HCPCS: 45385; J2704; 88305